=== PATIENT | male | born 1960 | race Caucasian/White ===

== ENCOUNTER 2018-04-19 17:33 | Inpatient (IN) ==
[2018-04-19] MEDS ORDERED: Morphine Inj 4 MG/ML Vial IV.PUSH ONE ×2 (17:59→20:11)
--- NOTE | 2018-04-19 18:05 | ED ---
HPI General Chief Complaint: Extremity Injury, Lower Stated Complaint: Fall Time Seen by Provider: 04/19/18 17:38 Source: patient and RN notes reviewed Mode of arrival: EMS Limitations: no limitations History of Present Illness HPI Narrative: 49-year-old male presents to the emergency department for evaluation of possible right knee dislocation. Patient states that his knee gave out and he fell. He is recently started having pain in his right knee. He denies any other injury. No head injury LOC. No neck pain or back pain. No chest pain or abdominal pain. No vomiting. He reports 4/10 right knee pain. This move pain is exacerbated with palpation and movement. Moderate severity. Patient is scheduled to have outpatient MRI tomorrow of his right knee. Patient reports renal cell carcinoma with metastases to the pancreas, adrenal glands, lung, liver. His oncologist is Dr. Caldwell. He is currently on oral chemotherapy. Patient's states that he recently had an x-ray of the knee due to pain and is still an area that could be a metastasis. He is scheduled for the MRI tomorrow for this. MD complaint: knee injury Onset (ago): minute(s) Injury: Right: knee Type of Injury: unknown Place: home Severity: moderate Severity scale (1-10): 4 Relieving factors: nothing Exacerbating factors: weight bearing and movement Context: fall Associated symptoms: snap/pop sensation Other symptoms: none Treatments prior to arrival: cold therapy and splint Related Data Home Medications Medication Instructions Recorded Confirmed allopurinol 300 mg PO DAILY 04/19/18 04/19/18 enalapril maleate [Vasotec] 10 mg PO DAILY 04/19/18 04/19/18 furosemide [Lasix] 40 mg PO DAILY 04/19/18 04/19/18 lisinopril 5 mg PO DAILY 04/19/18 04/19/18 lorazepam 0.5 mg PO BID 04/19/18 04/19/18 metoprolol tartrate 100 mg PO BID 04/19/18 04/19/18 omeprazole 20 mg PO DAILY 04/19/18 04/19/18 pazopanib [Votrient] 800 mg PO DAILY 04/19/18 04/19/18 potassium chloride 10 meq PO DAILY 04/19/18 04/19/18 prednisone 20 mg PO DAILY 04/19/18 04/19/18 Allergies Allergy/AdvReac Type Severity Reaction Status Date / Time No Known Allergies Allergy Verified 04/19/18 18:22 Review of Systems ROS: all other systems reviewed are negative PMFSH Medical History Medical History Gout (Acute) HBP (high blood pressure) (Acute) Hx of renal cell cancer (Acute) Surgical History Surgical History Hx of hernia repair (Acute) Hx of kidney removal (Acute) Social History Social History Substance History: No History of Abuse Second Hand Smoke Exposure: No Smoking Status: Never smoker Tobacco Type: Cigarettes How Often Do You Have a Drink Containing Alcohol: Never Recent Travel in [facility] within the Last 8 Weeks: No Recent Out of Country Travel within the Last 8 Weeks: No Exam Narrative Exam Narrative: GENERAL: Well-nourished, well-developed male patient, afebrile SKIN: Focused skin assessment warm/dry. HEAD: Normocephalic. Atraumatic EYES: No scleral icterus. No injection or drainage. NECK: Supple, trachea midline. No JVD or lymphadenopathy. CARDIOVASCULAR: Right pedal pulse is 2+ RESPIRATORY: No accessory muscle use. GASTROINTESTINAL: Abdomen soft, non-tender, nondistended. MUSCULOSKELETAL: No cyanosis, or edema. Patient has tenderness to extend right leg and over right knee. He has full sensation to the distal right lower extremity and can perform ROM of all digits of the right foot and right ankle. BACK: Nontender without obvious deformity. No CVA tenderness. Procedures Orthopedic Fracture Reduction Fracture #1: Time Out Performed: Yes Side: right Fracture Reduction Location: femur Analgesia: procedural sedation Technique: direct manipulation Post Reduction X-rays Demonstrate: acceptable reduction Post-Reduction Neuro Exam: intact Post-Reduction Vascular Exam: intact Splint Applied: Yes Patient Tolerated Procedure: well Procedural Sedation Indications: fracture/dislocation reduction ASA Class: ASA 2 Moderate Systemic Disease Preparation: engine monitor applied, pulse oximeter and supplemental O2 applied IV Propofol Dose (mgs): 50 Patient Tolerated Procedure: well Complications: none Course Initial Documented Vital Signs Temperature 97.8 F 04/19/18 17:57 Pulse Rate 86 04/19/18 17:57 Respiratory Rate 18 04/19/18 17:57 Blood Pressure 176/82 H 04/19/18 17:57 Pulse Oximetry 98 04/19/18 17:57 Last Documented Vital Signs Temperature 97.5 F L 04/20/18 16:00 Pulse Rate 56 L 04/20/18 16:00 Respiratory Rate 18 04/20/18 16:00 Blood Pressure 176/90 H 04/20/18 16:00 Pulse Oximetry 98 04/20/18 16:49 Medical Decision Making THEODORA Attestation THEODORA supervised visit: Yes Attestation: I, Dr. Tate, have reviewed the advance practice practitioner's documentation and am in agreement, met with the patient face to face, made the diagnosis, and the medical decision making was done by me. The patient was initially evaluated by Terra, the [employer]. Please see their complete history and physical. *My assessment and Findings: The patient presents with a history of right knee pain. The patient's x-ray revealed a fracture of the distal femur fracture that appears to be pathologic. The patient on examination is noted to have great distal dorsalis pedis and posterior tibial pulses with intact sensation over all digits and less than 3-second capillary refill. During the course of the patient's emergency department visit, the patient's history, examination, and differential diagnosis were reviewed with the patient. The patient was placed on a engine monitor with oximetry and frequent blood pressure monitoring. The patient had IV access obtained and blood work sent for analysis. The patient agreed to a closed reduction of his fracture dislocation with placement in a knee immobilizer. A timeout was done. Procedural sedation was supplied by me. The fracture was able to be easily reduced. The patient continued to be neurovascularly intact. The patient had an ice cuff applied. The patient was placed in a knee immobilizer. The patient will be admitted to the hospital for continued evaluation and treatment by the orthopedic physician and hospitalist service. MDM Narrative Medical decision making narrative: 57 year old male presents to the emergency department for evaluation of right knee pain after a fall that occurred just prior to arrival. X-ray of the right knee is ordered and pending. Patient is given Morphine 4 mg IV and Zofran 4 mg IV. X-ray of the right knee shows a distal femur fracture. Orthopedist on-call is paged. CBC, CMP, PTT, PT/INR, EKG, chest x-ray are ordered and pending. CBC shows no acute abnormality. Patient is elevated BUN of 32, creatinine 1.73. PTT is 25.4. PT is 11.0. INR is 1.1. Chest x-ray shows no acute cardiopulmonary disease. I spoke with Dr. Montoya who states that the knee needs to be straightened out. He recommends sedation and a long canvas knee splint. The patient is to be n.p.o. after midnight. I spoke to Dr. Morfin with [facility] who accepted admission. Dr. Tate performed sedation and canvas knee splint was applied with ice machine by [employer]. Medical Screen Exam Complete: Yes Emergency Medical Condition: Yes Differential Diagnosis Differential Diagnosis: dislocation vs. fracture vs. sprain vs. tendon injury Medical Records Medical records reviewed: Yes I reviewed the patient's medical records. Lab Data Result diagrams: 04/19/18 16:30 04/20/18 05:45 Lab Results 04/19/18 04/19/18 04/19/18 Range/Units 16:30 16:30 16:30 WBC 5.3 (4.0-11.0) th/mm3 RBC 3.63 L (4.50-5.90) mil/mm3 Hgb 13.8 (13.0-17.0) gm/dL Hct 38.9 L (39.0-51.0) % MCV 106.9 H (80.0-100.0) fL MCH 38.1 H (27.0-34.0) pg MCHC 35.6 (32.0-36.0) % RDW 14.9 (11.6-17.2) % Plt Count 110 L (150-450) th/mm3 MPV 7.8 (7.0-11.0) fL Neut % (Auto) 74.0 H (16.0-70.0) % Lymph % (Auto) 16.0 (9.0-44.0) % [place] % (Auto) 8.8 H (0.0-8.0) % Eos % (Auto) 0.8 (0.0-4.0) % Baso % (Auto) 0.4 (0.0-2.0) % Neut # (Auto) 3.9 (1.8-7.7) th/mm3 Lymph # (Auto) 0.9 L (1.0-4.8) th/mm3 [place] # (Auto) 0.5 (0.0-0.9) th/mm3 Eos # (Auto) 0.0 (0.0-0.4) th/mm3 Baso # (Auto) 0.0 (0.0-0.2) th/mm3 WBC Differential . Differential Comment Auto diff final PT 11.0 (9.8-11.6) sec INR 1.1 Ratio APTT 25.4 (24.3-30.1) sec Sodium 136 (136-145) meq/L Potassium 4.2 (3.5-5.1) meq/L Chloride 101 (98-107) meq/L Carbon Dioxide 22.2 (21.0-32.0) meq/L Anion Gap 13 (5-15) meq/L BUN 32 H (7-18) mg/dL Creatinine 1.73 H (0.60-1.30) mg/dL Estimated GFR 41 L (>89) mL/min Random Glucose 104 (74-106) mg/dL Calcium 8.7 (8.5-10.1) mg/dL Total Bilirubin 1.0 (0.2-1.0) mg/dL AST 57 H (15-37) U/L ALT 37 (12-78) U/L Alkaline Phosphatase 120 H (45-117) U/L Total Protein 7.5 (6.4-8.2) g/dL Albumin 3.9 (3.4-5.0) g/dL 04/20/18 Range/Units 05:45 WBC (4.0-11.0) th/mm3 RBC (4.50-5.90) mil/mm3 Hgb (13.0-17.0) gm/dL Hct (39.0-51.0) % MCV (80.0-100.0) fL MCH (27.0-34.0) pg MCHC (32.0-36.0) % RDW (11.6-17.2) % Plt Count (150-450) th/mm3 MPV (7.0-11.0) fL Neut % (Auto) (16.0-70.0) % Lymph % (Auto) (9.0-44.0) % [place] % (Auto) (0.0-8.0) % Eos % (Auto) (0.0-4.0) % Baso % (Auto) (0.0-2.0) % Neut # (Auto) (1.8-7.7) th/mm3 Lymph # (Auto) (1.0-4.8) th/mm3 [place] # (Auto) (0.0-0.9) th/mm3 Eos # (Auto) (0.0-0.4) th/mm3 Baso # (Auto) (0.0-0.2) th/mm3 WBC Differential Differential Comment PT (9.8-11.6) sec INR Ratio APTT (24.3-30.1) sec Sodium 139 (136-145) meq/L Potassium 4.2 (3.5-5.1) meq/L Chloride 103 (98-107) meq/L Carbon Dioxide 29.4 (21.0-32.0) meq/L Anion Gap 7 (5-15) meq/L BUN 30 H (7-18) mg/dL Creatinine 1.54 H (0.60-1.30) mg/dL Estimated GFR 47 L (>89) mL/min Random Glucose 88 (74-106) mg/dL Calcium 8.1 L (8.5-10.1) mg/dL Total Bilirubin (0.2-1.0) mg/dL AST (15-37) U/L ALT (12-78) U/L Alkaline Phosphatase (45-117) U/L Total Protein (6.4-8.2) g/dL Albumin (3.4-5.0) g/dL Imaging Data Radiologist's impression: Knee X-Ray 04/19/18 17:58 CONCLUSION: Distal femur fracture. Chest X-Ray 04/19/18 18:33 CONCLUSION: No acute cardiopulmonary disease. Lower Extremity Angiography 04/20/18 00:00 CONCLUSION: 1. The patient's pathologic fracture through the distal femurs easily visualized. There is no significant arterial neovascularity in or around the fracture site. Discharge Plan Discharge Disposition Patient Disposition: 30 Still Patient Discharge Details Diagnosis: Closed fracture of distal end of right femur Physicians Team ED Provider: Roly Lawrence ED Midlevel Provider: Terra Burton Primary Care Provider: Frankie Flanagan Attending Provider: Antonino Antonio Other Providers: Emeka Montoya ; Joel Ojeda ; Sandra Caldwell Status ED Status: Left Department Discharge Information Discharge Date/Time: 04/19/18 22:45
[2018-04-19 19:07] LABS: Baso % (Auto) 0.4 % (0.0-2.0); Eos % (Auto) 0.8 % (0.0-4.0); Hematocrit 38.9 % (39.0-51.0); Hemoglobin 13.8 gm/dL (13.0-17.0); Lymph # (Auto) 0.9 th/mm3 (1.0-4.8); Mean Corpuscular HGB Conc 35.6 % (32.0-36.0); Mean Corpuscular Hemoglobin 38.1 pg (27.0-34.0); Mean Corpuscular Volume 106.9 fL (80.0-100.0); Mean Platelet Volume 7.8 fL (7.0-11.0); Mono # (Auto) 0.5 th/mm3 (0.0-0.9); Mono % (Auto) 8.8 % (0.0-8.0); Neut # (Auto) 3.9 th/mm3 (1.8-7.7); Platelet Count 110 th/mm3 (150-450); Red Blood Count 3.63 mil/mm3 (4.50-5.90); Red Cell Distribution Width 14.9 % (11.6-17.2); White Blood Count 5.3 th/mm3 (4.0-11.0)
[2018-04-19 19:20] LABS: Activated Partial Thrombo Time 25.4 sec (24.3-30.1); INR 1.1 Ratio
[2018-04-19 19:31] LABS: Albumin 3.9 g/dL (3.4-5.0); Anion Gap 13 meq/L (5-15); Aspartate Aminotransferase 57 U/L (15-37); Blood Urea Nitrogen 32 mg/dL (7-18); Calcium 8.7 mg/dL (8.5-10.1); Carbon Dioxide 22.2 meq/L (21.0-32.0); Chloride 101 meq/L (98-107); Glomerular Filtration Rate 41 mL/min (>89); Glucose,Random 104 mg/dL (74-106); Potassium 4.2 meq/L (3.5-5.1); Sodium 136 meq/L (136-145)
[2018-04-19] MEDS ORDERED: Sod Chloride 0.9% Inj 1,000 ML IV.SIG ONE (19:35)
[2018-04-19 19:36] LABS: Alanine Aminotransferase 37 U/L (12-78); Alkaline Phosphatase 120 U/L (45-117); Total Protein 7.5 g/dL (6.4-8.2)
--- NOTE | 2018-04-19 21:50 | P.HP ---
History of Present Illness Service: [facility] Primary Care Physician: Frankie Flanagan MD, PhD Chief Complaint: left leg gave out History of Present Illness: 57-year-old white male presents to the emergency department at [facility] for evaluation of possible right knee dislocation. Patient states he was home was at home and his knee gave out and he fell to the ground. Patient has recently started having pain to the right leg and right knee and has been under workup x-rays were done which showed a question of possible metastasized to the knee and he was scheduled for an MRI which was to be done tomorrow. He denies any other injury no loss of consciousness no neck or back pain no chest pain no abdominal pain no vomiting no shortness of breath. Patient has a history of right of renal cell carcinoma with metastasis to the pancreas adrenal glands long liver has had renal nephrectomy is followed by oncology currently is on Pazopanib and core into the patient has has done well with this medication with improvement in his chest x-ray until recently and they found a possible spot on the knee. Patient also has a history of hypertension and is on metoprolol 100 twice daily enalapril 10 mg a day Lasix 40 mg a day and potassium supplementation patient's blood pressure has been a little high in the emergency room we will Klonopin as necessary as his kidney function shows a creatinine 1.73. Case was discussed with orthopedics by the emergency room and he will have conscious sedation in long Canvas splint placed on the leg plans for operation in a.m. - Diagnosis (1) Closed fracture of distal end of right femur (2) Metastatic renal cell carcinoma (3) Hypertension (4) Chronic renal insufficiency, stage III (moderate) Inpatient Certification: I certify that the inpatient services were ordered in accordance with Medicare regulations governing the order. This includes certification that hospital inpatient services are reasonable and necessary and in the case of services not specified as inpatient-only under 42 CFR 419.22(n), that they are appropriately provided as inpatient services in accordance to with the 2-midnight benchmark under 43 CFR 412.3(e) Estimated Total Length of Stay (Days): 3 Plans for Post Hospital Care: Not yet determined Review of Systems All other systems reviewed negative except as stated in HPI [facility]LY [facility], [facility] - History History Provided By: Patient - Medical History Medical History: Medical History (Last Updated 04/19/18 @ 18:31 by Mell Sr) Gout HBP (high blood pressure) Hx of renal cell cancer - Surgical History Surgical History: Surgical History (Last Updated 04/19/18 @ 18:31 by Mell Sr) Hx of hernia repair Hx of kidney removal - Tobacco History Second Hand Smoke Exposure: No Tobacco Use In Past 30 Days: No Smoking Status: Former smoker Tobacco Type: Cigarettes - Alcohol History How Often Do You Have a Drink Containing Alcohol: Never - Substance Use History Substance History: No History of Abuse - Travel History Recent Travel in the [place] Within the Last 8 Weeks: No Recent Travel Out of the Country Within the Last 8 Weeks: No - Immunization History Tetanus Immunization: >5 Years Hx Influenza Vaccine This Season: No Medications and Allergies Active Medications: Active Medications Allopurinol (Zyloprim) 300 mg PO DAILY QUANG Enalapril Maleate (Vasotec) 10 mg PO DAILY QUANG Furosemide (Lasix) 40 mg PO DAILY QUANG Hydromorphone HCl (Dilaudid Pf Inj) 1 mg IV.PUSH Q4H PRN PRN Reason: PAIN SCALE 6 TO 10 Sodium Chloride (1/2 Normal Saline Inj) 1,000 mls @ 50 mls/hr IV.CONT .Q20H QUANG Lorazepam (Ativan) 0.5 mg PO BID QUANG Metoprolol Tartrate (Lopressor) 100 mg PO BID QUANG Non-Formulary Medication (Pazopanib [Votrient]) 800 mg PO DAILY QUANG Pantoprazole Sodium (Protonix) 20 mg PO DAILY QUANG Potassium Chloride (Klor-Con 10) 10 meq PO DAILY QUANG Senna/Docusate Sodium (Lisa-Colace) 1 tab PO BID QUANG Allergies Allergy/AdvReac Type Severity Reaction Status Date / Time No Known Allergies Allergy Verified 04/19/18 18:22 Home Medications Medication Instructions Recorded Confirmed Type allopurinol 300 mg PO DAILY 04/19/18 04/19/18 History enalapril maleate [Vasotec] 10 mg PO DAILY 04/19/18 04/19/18 History furosemide [Lasix] 40 mg PO DAILY 04/19/18 04/19/18 History lisinopril 5 mg PO DAILY 04/19/18 04/19/18 History lorazepam 0.5 mg PO BID 04/19/18 04/19/18 History metoprolol tartrate 100 mg PO BID 04/19/18 04/19/18 History omeprazole 20 mg PO DAILY 04/19/18 04/19/18 History pazopanib [Votrient] 800 mg PO DAILY 04/19/18 04/19/18 History potassium chloride 10 meq PO DAILY 04/19/18 04/19/18 History prednisone 20 mg PO DAILY 04/19/18 04/19/18 History Exam Vital signs: Vital Signs 04/19/18 17:57 04/19/18 18:05 04/19/18 20:00 Temperature 97.8 F Pulse Rate 86 Respiratory Rate 18 17 Blood Pressure 176/82 H Pulse Oximetry 98 100 04/19/18 20:19 Temperature Pulse Rate Respiratory Rate Blood Pressure Pulse Oximetry 99 Intake & Output 04/19/18 04/19/18 04/20/18 06:59 18:59 06:59 Weight 90.718 kg Narrative: GENERAL: SKIN: Warm and dry. Palpable hernia on left side and ventral HEAD: Normocephalic. EYES: No scleral icterus. No injection or drainage. NECK: Supple, trachea midline. No JVD or lymphadenopathy. CARDIOVASCULAR: Regular rate and rhythm without murmurs, gallops, or rubs. RESPIRATORY: Breath sounds equal bilaterally. No accessory muscle use. GASTROINTESTINAL: Abdomen soft, non-tender, nondistended. MUSCULOSKELETAL: No cyanosis, or edema. rt leg in splint pain to rt leg BACK: Nontender without obvious deformity. No CVA tenderness. Results - Labs CBC & Chem 7: 04/19/18 16:30 04/19/18 16:30 Labs: Laboratory Results - last 24 hr 04/19/18 04/19/18 04/19/18 16:30 16:30 16:30 WBC 5.3 RBC 3.63 L Hgb 13.8 Hct 38.9 L MCV 106.9 H MCH 38.1 H MCHC 35.6 RDW 14.9 Plt Count 110 L MPV 7.8 Neut % (Auto) 74.0 H Lymph % (Auto) 16.0 [place] % (Auto) 8.8 H Eos % (Auto) 0.8 Baso % (Auto) 0.4 Neut # (Auto) 3.9 Lymph # (Auto) 0.9 L [place] # (Auto) 0.5 Eos # (Auto) 0.0 Baso # (Auto) 0.0 WBC Differential . Differential Comment Auto diff final PT 11.0 INR 1.1 APTT 25.4 Sodium 136 Potassium 4.2 Chloride 101 Carbon Dioxide 22.2 Anion Gap 13 BUN 32 H Creatinine 1.73 H Estimated GFR 41 L Random Glucose 104 Calcium 8.7 Total Bilirubin 1.0 AST 57 H ALT 37 Alkaline Phosphatase 120 H Total Protein 7.5 Albumin 3.9 - Imaging Impressions Knee X-Ray 04/19/18 17:58 CONCLUSION: Distal femur fracture. Chest X-Ray 04/19/18 18:33 CONCLUSION: No acute cardiopulmonary disease. Caprini VTE Risk Assessment Caprini VTE Risk Assessment: Moderate/High Risk (score >= 2) VTE Pharmacological Exception Reason: Documented Caprini Risk Assessment Model: Point Value = 1 Point Value = 2 Point Value = 3 Point Value = 5 Age 41-60 Minor surgery BMI > 25 kg/m2 Swollen legs Varicose veins or History of unexplained or recurrent spontaneous Oral contraceptives or hormone replacement Sepsis (< 1 month) Serious lung disease, including pneumonia (< 1 month) Abnormal pulmonary function Acute myocardial infarction Congestive heart failure (< 1 month) History of inflammatory bowel disease Medical patient at bed rest Age 61-74 Arthroscopic surgery Major open surgery (> 45 min) Laparoscopic surgery (> 45 min) Malignancy Confined to bed (> 72 hours) Immobilizing plaster cast Central venous access Age >= 75 History of VTE Family history of VTE Factor V Leiden Prothrombin [id number] Lupus anticoagulant Anticardiolipin antibodies Elevated serum homocysteine Heparin-induced thrombocytopenia Other congenital or acquired thrombophilia Stroke (< 1 month) Elective arthroplasty Hip, pelvis, or leg fracture Acute spinal cord injury (< 1 month) Prophylaxis Regimen: Total Risk Factor Score Risk Level Prophylaxis Regimen 0-1 Low Early ambulation 2 Moderate Order ONE of the following: *Sequential Compression Device (SCD) *Heparin 5000 units SQ BID 3-4 Higher Order ONE of the following medications: *Heparin 5000 units SQ TID *Enoxaparin/Lovenox 40 mg SQ daily (WT < 150 kg, CrCl > 30 mL/min) *Enoxaparin/Lovenox 30 mg SQ daily (WT < 150 kg, CrCl > 10-29 mL/min) *Enoxaparin/Lovenox 30 mg SQ BID (WT < 150 kg, CrCl > 30 mL/min) AND/OR *Sequential Compression Device (SCD) 5 or more Highest Order ONE of the following medications: *Heparin 5000 units SQ TID (Preferred with Epidurals) *Enoxaparin/Lovenox 40 mg SQ daily (WT < 150 kg, CrCl > 30 mL/min) *Enoxaparin/Lovenox 30 mg SQ daily (WT < 150 kg, CrCl > 10-29 mL/min) *Enoxaparin/Lovenox 30 mg SQ BID (WT < 150 kg, CrCl > 30 mL/min) AND *Sequential Compression Device (SCD) Assessment and Plan - Assessment (1) Closed fracture of distal end of right femur Code(s): S72.401A - Unspecified fracture of lower end of right femur, initial encounter for closed fracture Status: Acute Plan: for surgery in am ,hydromorph for pain was given morphine in er without any improvement (2) Metastatic renal cell carcinoma Code(s): C64.9 - Malignant neoplasm of unspecified kidney, except renal pelvis Status: Acute Plan: We will hold chemo therapy medication for tonight and will consult director of personnel (3) Hypertension Code(s): I10 - Essential (primary) hypertension Status: Acute Plan: Patient's blood pressure in the emergency room is high he did not take his evening doses of medication he had it with them we gave him his enalapril 10 mg p.o. as well as metoprolol 100 mg p.o. we will watch him before a little while longer and if there is no improvement we may need to give him labetalol 10 mg IV also placed clonidine as needed and his orders (4) Chronic renal insufficiency, stage III (moderate) Code(s): N18.3 - Chronic kidney disease, stage 3 (moderate) Status: Acute Plan: Patient has chronic kidney disease stage III his creatinine is currently 1.73 will follow-up once - Plan Further plan as case develops Code Status: Full Discussed Condition With: Patient and
[2018-04-19] MEDS ORDERED: Labetalol HCl Inj 100 MG/20 ML Vial IV.PUSH ONE (21:51)
[2018-04-19] MEDS: HYDROmorphone PF Inj 2 MG/ML Vial IV.PUSH PRN (22:43)
[2018-04-19] MEDS: Sodium Chloride 0.45 % Inj 1,000 ML IV.CONT SCH (22:58)
[2018-04-20] MEDS: HYDROmorphone PF Inj 2 MG/ML Vial IV.PUSH PRN ×5 (02:39→20:29)
--- NOTE | 2018-04-20 06:51 | P.PNOP ---
Subjective Interval history: Gregory is a 57-year-old male who is renal cell cancer. He has been having increasing pain to the right femur over the past several weeks. He has been ambulating with crutches. Imaging did show a tumor or mass over the distal femur prior to this fracture. Yesterday while he was at home his leg gave way and he was unable to stand or ambulate. Upon admission to the hospital x-rays confirmed fracture to the right distal femur. He has no other orthopedic complaints. He is currently on p.o. chemotherapy. Physical Exam Vital signs: Vital Signs 04/19/18 17:57 04/19/18 18:05 04/19/18 19:00 Temperature 97.8 F Pulse Rate 86 52 L Respiratory Rate 18 17 18 Blood Pressure 176/82 H 182/100 H Pulse Oximetry 98 98 04/19/18 20:00 04/19/18 20:19 04/19/18 21:00 Temperature Pulse Rate 52 L 56 L Respiratory Rate 18 18 Blood Pressure 212/116 H 213/126 H Pulse Oximetry 98 99 98 04/19/18 22:15 04/20/18 00:00 04/20/18 01:37 Temperature 97.4 F L Pulse Rate 56 L 54 L Respiratory Rate 18 16 Blood Pressure 179/79 H 196/110 H 164/96 H Pulse Oximetry 98 97 04/20/18 04:00 Temperature 97.4 F L Pulse Rate 62 Respiratory Rate 16 Blood Pressure 147/98 H Pulse Oximetry 98 Intake & Output 04/19/18 04/19/18 04/20/18 06:59 18:59 06:59 Intake Total 1000 / 1000 Output Total 850 / 850 Balance 150 / 150 Weight 90.718 kg 90.7 kg Intake: IV 1000 / 1000 NS Inj 1,000 ML @ Wide Open IV. 1000 / 1000 SIG BOLUS ONE Rx#:[id number] Output: Urine 850 / 850 Other: Date of Last Bowel Movement 04/19/18 Narrative: Bilateral upper extremities: Full range of motion neurovascularly intact Left lower extremity: Full range of motion and neurovascularly intact Right lower extremity: No pain to palpation of hip. Knee immobilizer in place with ice cuff. Distally intact sensation with good capillary refills with active dorsiflexion plantar flexion foot. Results - Labs CBC & Chem 7: 04/19/18 16:30 04/19/18 16:30 Laboratory Results - last 24 hr 04/19/18 04/19/18 04/19/18 16:30 16:30 16:30 WBC 5.3 RBC 3.63 L Hgb 13.8 Hct 38.9 L MCV 106.9 H MCH 38.1 H MCHC 35.6 RDW 14.9 Plt Count 110 L MPV 7.8 Neut % (Auto) 74.0 H Lymph % (Auto) 16.0 [place] % (Auto) 8.8 H Eos % (Auto) 0.8 Baso % (Auto) 0.4 Neut # (Auto) 3.9 Lymph # (Auto) 0.9 L [place] # (Auto) 0.5 Eos # (Auto) 0.0 Baso # (Auto) 0.0 WBC Differential . Differential Comment Auto diff final PT 11.0 INR 1.1 APTT 25.4 Sodium 136 Potassium 4.2 Chloride 101 Carbon Dioxide 22.2 Anion Gap 13 BUN 32 H Creatinine 1.73 H Estimated GFR 41 L Random Glucose 104 Calcium 8.7 Total Bilirubin 1.0 AST 57 H ALT 37 Alkaline Phosphatase 120 H Total Protein 7.5 Albumin 3.9 - Imaging Impressions Knee X-Ray 04/19/18 17:58 CONCLUSION: Distal femur fracture. Chest X-Ray 04/19/18 18:33 CONCLUSION: No acute cardiopulmonary disease. Assessment and Plan - Assessment and Plan Right distal femur fracture with history of renal cell carcinoma Order today for interventional radiology to evaluate and perform embolization of blood vessels surrounding the tumor of his right femur. Patient understands that embolization was not performed he will have significant bleeding if any procedures performed. We will plan on surgery tomorrow for open reduction internal internal fixation versus intramedullary oswaldo fixation of the right distal femur. N.p.o. after midnight from orthopedic standpoint
[2018-04-20 07:20] LABS: Calcium 8.1 mg/dL (8.5-10.1); Carbon Dioxide 29.4 meq/L (21.0-32.0); Potassium 4.2 meq/L (3.5-5.1)
[2018-04-20] MEDS ORDERED: VOTRIENT PO SCH (09:00)
[2018-04-20] MEDS ORDERED: Metoprolol Tartrate 100 MG Tablet PO SCH (09:00)
[2018-04-20] MEDS: Furosemide 40 MG Tablet PO SCH (09:00)
[2018-04-20] MEDS: Pantoprazole Sodium 20 MG DR Tablet PO SCH (09:00)
[2018-04-20] MEDS: LORazepam 0.5 MG Tablet PO SCH ×2 (09:01→20:28)
[2018-04-20] MEDS: Senna/Docusate Sodium 8.6/50 MG Tablet PO SCH ×2 (09:01→20:28)
[2018-04-20] MEDS: Allopurinol 300 MG Tablet PO SCH (09:01)
[2018-04-20] MEDS ORDERED: fentaNYL Citrate Inj 250 MCG/5 ML Ampul ONE (10:22)
--- NOTE | 2018-04-20 11:27 | P.RAD ---
Post Procedure Progress Note - Pre Procedure Diagnosis (1) Closed fracture of distal end of right femur (2) Metastatic renal cell carcinoma - Post Procedure Diagnosis (1) Closed fracture of distal end of right femur (2) Metastatic renal cell carcinoma - Procedure Information Procedure Date: 04/20/18 Supervising Radiologist: Duncan Graham MD Estimated blood loss (mL): 2 Anesthesia: Local, Conscious Sedation - Plan of Activity Patient to Unit: ROPU Patient Condition: Fair Additional Comments: Angio completed Lesion in the distal right femur is hypovascular. No embolization preformed See PACS Report for procedural detail/treatment.
--- NOTE | 2018-04-20 12:00 | P.PNIM ---
Subjective Interval history: Pt denies new complaints. Pain is controlled with current regimen. Physical Exam Vital signs: 04/20/18 04:00 Temperature 97.4 F L Pulse Rate 62 Respiratory Rate 16 Blood Pressure 147/98 H Pulse Oximetry 98 Narrative: GENERAL: This is a well-nourished, well-developed patient, in no apparent distress. CARDIOVASCULAR: Regular rate and rhythm without murmurs, gallops, or rubs. RESPIRATORY: Clear to auscultation. Breath sounds equal bilaterally. No wheezes , rales, or rhonchi. GASTROINTESTINAL: Abdomen soft, non-tender, nondistended. Normal active bowel sounds MUSCULOSKELETAL: Extremities without clubbing, cyanosis, or edema. NEURO: Alert & Oriented x4 to person, place, time, situation. Moves all ext x4 EXT: Right lower extremity: No pain to palpation of hip. Knee immobilizer in place with ice cuff. Distally intact sensation with good capillary refills with active dorsiflexion plantar flexion foot. Results - Labs CBC & Chem 7: 04/19/18 16:30 04/20/18 05:45 - Imaging Knee X-Ray 04/19/18 17:58 CONCLUSION: Distal femur fracture. Chest X-Ray 04/19/18 18:33 CONCLUSION: No acute cardiopulmonary disease. Assessment and Plan - Assessment (1) Closed fracture of distal end of right femur Code(s): S72.401A - Unspecified fracture of lower end of right femur, initial encounter for closed fracture Status: Acute Plan: - Assessment (1) Closed fracture of distal end of right femur Code(s): S72.401A - Unspecified fracture of lower end of right femur, initial encounter for closed fracture Status: Acute - Comgmt with Oncology & Orthopedics - Pt with apparent pathologic fracture - MRI RLE --> pending - IR, Dr. Graham, (04/20/18) - Angio completed - Lesion in the distal right femur is hypovascular. - No embolization preformed - Pt to under ORIF with Orthopedist, Dr. Amador (04/21) - Awaiting Oncology consultation - prn IV Dilaudid for pain control - SCD for DVT prophylaxis - supportive care (2) Metastatic renal cell carcinoma Code(s): C64.9 - Malignant neoplasm of unspecified kidney, except renal pelvis Status: Acute - chemotherapy on hold - await Oncology (3) Hypertension Code(s): I10 - Essential (primary) hypertension Status: Acute - metoprolol, enalapril - prn Catapres, vasotec (4) Chronic renal insufficiency, stage III (moderate) Code(s): N18.3 - Chronic kidney disease, stage 3 (moderate) Status: Acute Plan: - improving - observe (2) Metastatic renal cell carcinoma Code(s): C64.9 - Malignant neoplasm of unspecified kidney, except renal pelvis Status: Acute (3) Hypertension Code(s): I10 - Essential (primary) hypertension Status: Acute (4) Chronic renal insufficiency, stage III (moderate) Code(s): N18.3 - Chronic kidney disease, stage 3 (moderate) Status: Acute (1) Closed fracture of distal end of right femur Qualifiers: Encounter type: initial encounter Fracture morphology: other fracture Qualified Code(s): S72.491A - Other fracture of lower end of right femur, initial encounter for closed fracture
[2018-04-20] MEDS ORDERED: Pantoprazole Inj 40 MG Vial IV.PUSH ONE (13:20)
--- NOTE | 2018-04-20 13:45 | P.DIET ---
Nutritional Evaluation Type of nutrition evaluation: initial Nutrition screening: Weight Loss > 10 lbs Subjective Subjective Comments: On oral chemo Objective - Diagnosis R Distal Femur Fracture - Objective % IBW: 112 (URZ=843#) Body Weight Used for Calculations: Actual (90.7kg) Energy Needs - Lower Range (kCal/kg): 25 Energy Needs - Upper Range (kCal/kg): 30 Lower Limit kCal/kg (kCals): 2,268 Upper Limit kCal/kg (kCals): 2,721 Lower Limit Protein Factor (Grams per Kg): 1.1 Upper Limit Protein Factor (Grams per Kg): 1.4 Lower Protein Needs (Protein): 100 Upper Protein Needs (Protein): 127 Fluid Factor (ml/kg): 30 Estimated Fluid Needs (ml): 2,721 Dietitian Reviewed in Medical Record: Current diet, Curent medications, Intake & Output, Labs, Medical history Diet Order: NPO Objective Comments: Meds: Lasix Labs: BUN 30, correctional agency director 1.54, eGFR 47 LBM 04/19 Metastatic renal cell carcinoma s/p L nephrectomy, on oral chemo On 04/08, pt weighed 93.3kg at outpt Oncology f/u Assessment Assessment: Pt admitted for R distal femur fx. He has renal cell carcinoma w/ mets to the pancreas, adrenal glands, lung, and liver per review of EMR. He is on oral chemo , had a L nephrectomy. He is currently NPO for possible Ortho sx tomorrow. The pt is at high nutritional risk r/t his diagnosis of metastatic cancer. Previous weights have been reviewed. Will monitor diet advancement and clinical course. Dietitian following. Recommendations: 1. Continue current POC. 2. Advance diet per MD. 3. Will monitor diet advancement and clinical course. Dietitian to Monitor: Intake & Output, Weight change, Diet advancement, Medical course
--- NOTE | 2018-04-20 17:34 | ECG ---
Date Performed: 04/19/2018 Time Performed: 18:48:17 PTAGE: 57 years EKG: SINUS BRADYCARDIA Diffuse ST-T abnormalities are new since the previous tracing, Can not ex clude ischemia. ABNORMAL ECG PREVIOUS TRACING : 09/13/2008 [id number] DOCTOR: Steven Tate Interpretating Date/Time 04/20/2018 17:32:32
[2018-04-20] MEDS: Sodium Chloride 0.45 % Inj 1,000 ML IV.CONT SCH (19:51)
[2018-04-20] MEDS: Metoprolol Tartrate 50 MG Tablet PO SCH (20:28)
[2018-04-21] MEDS: HYDROmorphone PF Inj 2 MG/ML Vial IV.PUSH PRN ×4 (01:29→20:37)
[2018-04-21] MEDS ORDERED: Chlorhexidine Gluconate 2% 1 Pack (2 Cloths) TOPICAL ONE (04:02)
[2018-04-21] MEDS ORDERED: Metoprolol Tartrate 25 MG Tablet PO ONE (04:02)
[2018-04-21] MEDS ORDERED: Sodium Chlor 0.9% Inj 500 ML IV.SIG SCH (05:00)
--- NOTE | 2018-04-21 06:37 | P.PNOP ---
Subjective Interval history: s/p right distal femoral shaft fx s/p renal cell carcinoma right femur no changes. IR took for embolization yesterday but carcinoma was hypovascular Physical Exam Vital signs: Vital Signs 04/20/18 08:00 04/20/18 12:10 04/20/18 12:25 Temperature 97.3 F L Pulse Rate 51 L 57 L 46 L Respiratory Rate 18 20 20 Blood Pressure 159/95 H 139/90 143/85 H Pulse Oximetry 99 95 97 04/20/18 12:40 04/20/18 13:10 04/20/18 13:40 Temperature Pulse Rate 49 L 45 L Respiratory Rate 18 20 18 Blood Pressure 157/96 H 163/91 H 162/91 H Pulse Oximetry 97 97 94 L 04/20/18 14:27 04/20/18 16:00 04/20/18 16:49 Temperature 97.5 F L Pulse Rate 45 L 56 L Respiratory Rate 18 18 Blood Pressure 160/92 H 176/90 H Pulse Oximetry 95 98 98 04/20/18 20:00 04/21/18 00:00 04/21/18 04:00 Temperature 97.2 F L 97.2 F L 97.3 F L Pulse Rate 57 L 56 L 55 L Respiratory Rate 17 17 17 Blood Pressure 194/95 H 169/86 H 177/95 H Pulse Oximetry 100 99 100 Intake & Output 04/20/18 04/20/18 04/21/18 06:59 18:59 06:59 Intake Total 1000 / 1000 Output Total 850 / 850 600 / 600 Balance 150 / 150 -600 / -600 Weight 90.7 kg 86.7 kg Intake: IV 1000 / 1000 NS Inj 1,000 ML @ Wide Open IV. 1000 / 1000 SIG BOLUS ONE Rx#:[id number] Output: Urine 850 / 850 600 / 600 Other: # Voids 4 Date of Last Bowel Movement 04/19/18 04/20/18 # Bowel Movements 3 Narrative: RLE: +CKS. nvi. Results - Labs CBC & Chem 7: 04/19/18 16:30 04/20/18 05:45 Laboratory Results - last 24 hr 04/20/18 05:45 Sodium 139 Potassium 4.2 Chloride 103 Carbon Dioxide 29.4 Anion Gap 7 BUN 30 H Creatinine 1.54 H Estimated GFR 47 L Random Glucose 88 Calcium 8.1 L - Imaging Impressions Lower Extremity Angiography 04/20/18 00:00 CONCLUSION: 1. The patient's pathologic fracture through the distal femurs easily visualized. There is no significant arterial neovascularity in or around the fracture site. Assessment and Plan - Assessment and Plan 1) Right Distal Femoral Shaft Fx -npo -consents -surgery today with [facility] Prescription Drug Monitoring Database has been queried and verified prior to prescribing the controlled substance. Acute pain exception. This patient has normal, predicted, physiological, and time limited response to an adverse mechanical stimulus associated with surgery, trauma, or acute illness as described in my notes. There is a lack of alternative treatment options other than to include the prescribed narcotic treatment for this condition.
[2018-04-21] MEDS ORDERED: Bupivacaine/Epinephrine Inj 0.25% 50 ML Vial ONE (08:30)
[2018-04-21] MEDS ORDERED: Lidocaine PF 1% Inj 5 ML Syringe OTHER ONE (08:45)
[2018-04-21] MEDS ORDERED: Glycopyrrolate Inj 1 MG/5 ML Syringe IV.PUSH ONE (08:45)
[2018-04-21] MEDS ORDERED: Neostigmine Inj 5 MG/5 ML Syringe IV.PUSH ONE (08:45)
[2018-04-21] MEDS ORDERED: Post-op Orders (for Pharmacy) OTHER STA (10:00)
[2018-04-21] MEDS ORDERED: Morphine Inj 4 MG/ML Vial IV.PUSH PRN (10:00)
--- NOTE | 2018-04-21 10:05 | P.OP ---
- Preoperative Diagnosis (1) Closed fracture of distal end of right femur (2) Metastatic renal cell carcinoma Date of procedure: 04/21/18 Procedure: Right femur reduction and intramedullary nail fixation Anesthesia: GETA Surgeon: Joel Ojeda MD Associate Software Development Engineer: BIANCA Antony PA-C The surgical procedure was assisted by my physician clinical education assistant. My P.A. presence was necessary throughout this case for the manipulation and positioning of the surgical extremity. My P.A. was assisting me throughout the duration of this procedure. The skill set of a physician clinical education assistant was medically necessary to complete this procedure. During the surgical case the operating room surgical technologist was working at the back table and the physician clinical education assistant was directly assisting me. Operation and Findings: Implants used: [place] SCN 11 mm x 400 mm femoral nail Plan of activity: Toe-touch weightbearing Patient was seen and evaluated preoperatively. The patient has significant leg pain from femur shaft fracture. The risk and benefits of surgery were discussed in depth with the patient to include bleeding, infection, nonunion, malunion, need for hip replacement, painful hardware, as well as medical competitions including blood clots, stroke, heart attack, and . Informed consent was obtained. Operative site was marked. Patient was brought to the operating room and placed on Eleazar table. IV sedation was administered by anesthesiologist. Timeout procedure was performed. Hip and leg were prepped with alcohol followed by Hibiclens and draped in the usual sterile fashion. IV antibiotics were given prior to incision. Procedure began with reduction of fracture. Traction was applied. The leg was manipulated to achieve reduction. Excellent reduction was achieved. Fluoroscopy was used to confirm reduction. A two inch incision was made over the anterior knee. A medial arthrotomy was created. Guidepin was placed into the distal femur and advanced into the femoral canal. Fluoroscopy confirmed appropriate guidepin placement. A opening reamer was placed over the guidepin. A long ball tipped guide pin was now placed down the femoral canal into the center of the proximal femur. The nail length was now measured. Fluoroscopy confirmed appropriate guidepin placement. Flexible reamers were now passed over the guidepin to ream the intramedullary canal. Reamings from the canal for harvested and sent to pathology to evaluate for possible metastatic renal cell carcinoma. The nail was attached to the insertion handle. Nail was now placed over the guidepin into the femoral canal. Fluoroscopy confirmed appropriate nail placement. A small percutaneous incisions were made over the lateral thigh. Cannulas were placed through the insertion handle down to the femur. Using the insertion handle as a guide the 4 distal interlocking screw holes were predrilled and screw lengths were measured. Appropriate length screws was now placed. Next, using perfect [place] technique two proximal interlocking screws were placed. Screw holes were predrilled and screw lengths were measured. Final fluoroscopy revealed well aligned fracture with well-placed hardware. Incision was closed with 0 Vicryl, 3-0 Vicryl and shira. Sterile dressings were applied. Patient was awakened and transferred to recovery room.
--- NOTE | 2018-04-21 10:10 | P.CONOP ---
[facility] Orthopedics Consult Note - [facility] Consult date: 04/20/18 Chief complaint: right distal femur fracture Narrative: Gregory is a 57-year-old male. He presented to the emergency room after having severe right leg pain. He has a history of renal cell carcinoma. He has had increasing right pain above his knee for the past several weeks. He recently had x-rays which were suspicious for metastatic disease. He was scheduled to have an MRI to further evaluate. He states that he was standing when he felt a pop and had immediate pain. He denies any falls or traumatic injuries. He had severe right knee pain. Pain is worse with movement is improved with rest. He presented to the emergency room where x-rays reveal a displaced right distal femur supracondylar fracture. He is currently awake alert and orthopedic floor. His only complaint is right leg. He is currently undergoing chemotherapy for treatment of renal cell carcinoma. Review of Systems Patient denies fevers, chills, weight loss, headache, visual changes, hearing loss, chest pain, palpitations, shortness of breath, nausea, vomiting, no urinary changes, diarrhea, bowel changes, neck pain, back pain, skin rashes, weakness of extremities, easy bleeding, enlarged lymph nodes, numbness of extremities, anxiety, or depression. Patient's social history, past medical history, and family history were reviewed on chart and with patient. [facility] - History History Provided By: Patient - Medical History Medical History: Medical History (Last Reviewed 04/21/18 @ 10:07 by Joel Ojeda MD) Gout HBP (high blood pressure) Hx of renal cell cancer - Surgical History Surgical History: Surgical History (Last Reviewed 04/21/18 @ 10:07 by Joel Ojeda MD) Hx of hernia repair Hx of kidney removal - Social History I have reviewed the patient's Social History: Yes - Tobacco History Second Hand Smoke Exposure: No Tobacco Use In Past 30 Days: No Smoking Status: Never smoker Tobacco Type: Cigarettes - Alcohol History How Often Do You Have a Drink Containing Alcohol: Never - Substance Use History Substance History: No History of Abuse - Travel History Recent Travel in the [place] Within the Last 8 Weeks: No Recent Travel Out of the Country Within the Last 8 Weeks: No - Immunization History Tetanus Immunization: Unsure Hx Influenza Vaccine This Season: No Medications and Allergies Active Medications: Active Medications Hydrocodone Bitart/Acetaminophen (Brothers 5/325) 1 tab PO Q6H PRN PRN Reason: BREAKTHROUGH PAIN Last Admin: 04/21/18 04:25 Dose: 1 tab Hydrocodone Bitart/Acetaminophen (Brothers 7.5/325) 1 tab PO Q3H PRN PRN Reason: Pain Scale 3-10 Allopurinol (Zyloprim) 300 mg PO DAILY [facility] Last Admin: 04/20/18 09:01 Dose: 300 mg Calcium/Vitamin D (Oscal With D 250/125 Mg) 1 tab PO TID [facility] Clonidine HCl (Catapres) 0.1 mg PO Q6H PRN PRN Reason: SBP> OR = 180, DBP> OR = 100 Last Admin: 04/20/18 00:18 Dose: 0.1 mg Diphenhydramine HCl (Benadryl) 25 mg PO Q6H PRN PRN Reason: ITCHING Enalapril Maleate (Vasotec) 10 mg PO DAILY [facility] Last Admin: 04/20/18 09:00 Dose: 10 mg Enoxaparin Sodium (Lovenox Inj) 40 mg SQ DAILY [facility] Ergocalciferol (Vitamin D2) 50,000 unit PO ONCE ONE Stop: 04/21/18 10:01 Furosemide (Lasix) 40 mg PO DAILY [facility] Last Admin: 04/20/18 09:00 Dose: 40 mg Hydromorphone HCl (Dilaudid Pf Inj) 1 mg IV.PUSH Q4H PRN PRN Reason: PAIN SCALE 6 TO 10 Last Admin: 04/21/18 06:41 Dose: 1 mg Sodium Chloride (1/2 Normal Saline Inj) 1,000 mls @ 50 mls/hr IV.CONT .Q20H [facility] Last Admin: 04/20/18 19:51 Dose: Not Given Lactated Ringer's (Lr 1000 Ml Inj) 1,000 mls @ 30 mls/hr IV.SIG .Q24H [facility] Stop: 04/22/18 04:14 Last Admin: 04/21/18 07:56 Dose: 30 mls/hr Sodium Chloride (Ns Inj) 500 mls @ 30 mls/hr IV.SIG .Q10H [facility] Last Admin: 04/21/18 06:40 Dose: Not Given Cefazolin Sodium 1,000 mg/ (Sodium Chloride) 100 mls @ 200 mls/hr IV.SIG Q8H [facility] Stop: 04/22/18 02:29 Lorazepam (Ativan) 0.5 mg PO BID [facility] Last Admin: 04/20/18 20:28 Dose: 0.5 mg Metoprolol Tartrate (Lopressor) 50 mg PO BID [facility] Last Admin: 04/20/18 20:28 Dose: 50 mg Miscellaneous Information (Misc Post-Op Orders (For Pharmacy)) 0 each OTHER STAT STA Stop: 04/21/18 10:01 Morphine Sulfate (Morphine Inj) 3 mg IV.PUSH Q3H PRN PRN Reason: BREAKTHROUGH PAIN Ondansetron HCl (Zofran Inj) 4 mg IV.PUSH Q6H PRN PRN Reason: NAUSEA Pantoprazole Sodium (Protonix) 20 mg PO DAILY [facility] Last Admin: 04/20/18 09:00 Dose: 20 mg Potassium Chloride (Klor-Con 10) 10 meq PO DAILY [facility] Last Admin: 04/20/18 09:01 Dose: 10 meq Senna/Docusate Sodium (Lisa-Colace) 1 tab PO BID [facility] Last Admin: 04/20/18 20:28 Dose: Not Given Sodium Chloride (Ns Flush) 2 ml IV.FLUSH BID [facility] Sodium Chloride (Ns Flush) 2 ml IV.FLUSH PRN PRN PRN Reason: FLUSH AFTER USING IV ACCESS Vitamin D (Vitamin D3) 5,000 unit PO DAILY [facility] Allergies Allergy/AdvReac Type Severity Reaction Status Date / Time No Known Allergies Allergy Verified 04/19/18 18:22 Home Medications Medication Instructions Recorded Confirmed Type allopurinol 300 mg PO DAILY 04/19/18 04/19/18 History enalapril maleate [Vasotec] 10 mg PO DAILY 04/19/18 04/19/18 History furosemide [Lasix] 40 mg PO DAILY 04/19/18 04/19/18 History lisinopril 5 mg PO DAILY 04/19/18 04/19/18 History lorazepam 0.5 mg PO BID 04/19/18 04/19/18 History metoprolol tartrate 100 mg PO BID 04/19/18 04/19/18 History omeprazole 20 mg PO DAILY 04/19/18 04/19/18 History pazopanib [Votrient] 800 mg PO DAILY 04/19/18 04/19/18 History potassium chloride 10 meq PO DAILY 04/19/18 04/19/18 History prednisone 20 mg PO DAILY 04/19/18 04/19/18 History Exam Vital signs: Vital Signs 04/20/18 12:10 04/20/18 12:25 04/20/18 12:40 Temperature Pulse Rate 57 L 46 L Respiratory Rate 20 20 18 Blood Pressure 139/90 143/85 H 157/96 H Pulse Oximetry 95 97 97 04/20/18 13:10 04/20/18 13:40 04/20/18 14:27 Temperature Pulse Rate 49 L 45 L 45 L Respiratory Rate 20 18 18 Blood Pressure 163/91 H 162/91 H 160/92 H Pulse Oximetry 97 94 L 95 04/20/18 16:00 04/20/18 16:49 04/20/18 20:00 Temperature 97.5 F L 97.2 F L Pulse Rate 56 L 57 L Respiratory Rate 18 17 Blood Pressure 176/90 H 194/95 H Pulse Oximetry 98 98 100 04/21/18 00:00 04/21/18 04:00 Temperature 97.2 F L 97.3 F L Pulse Rate 56 L 55 L Respiratory Rate 17 17 Blood Pressure 169/86 H 177/95 H Pulse Oximetry 99 100 Intake & Output 04/20/18 04/21/18 04/21/18 18:59 06:59 18:59 Output Total 600 / 600 Balance -600 / -600 Weight 86.7 kg Output: Urine 600 / 600 Other: # Voids 4 Date of Last Bowel Movement 04/20/18 # Bowel Movements 3 Narrative: Gregory is a pleasant 57-year-old male. General: Awake and alert. No acute distress. Appears well-developed well- nourished Head: Normocephalic, atraumatic pupils are equal Neck: Soft, nontender, trachea midline Abdomen: Soft, nondistended Examination of right arm reveals no pain or deformity with shoulder, elbow, or wrist motion. Skin is intact. Radial pulse is palpable. Normal capillary refill in fingers. Sensation is intact in radial, ulnar, and median nerve distributions. [employer] Intern[employer] strength is +5. No lymphadenopathy noted. Examination of left arm reveals no pain or deformity with shoulder, elbow, or wrist motion. Skin is intact. Radial pulse is palpable. Normal capillary refill in fingers. Sensation is intact in radial, ulnar, and median nerve distributions. [employer] strength is +5. No lymphadenopathy noted. Examination of left lower extremity reveals no pain or deformity with hip, knee , or ankle motion. Skin is intact. Sensation is intact in left foot. Dorsalis pedis pulse is palpable. Normal capillary refill and feet. Thigh and calf compartments are soft. No lymphadenopathy noted. +5 strength of ankle dorsiflexion and plantarflexion. Examination of right lower extremity reveals no tenderness around his hip or ankle motion. He is very tender to palpation over the distal femur and knee. He has pain with any knee motion. There is mild swelling of the thigh. skin is intact. Sensation is intact in right foot. Dorsalis pedis pulse is palpable. Normal capillary refill and feet. Thigh and calf compartments are soft. No lymphadenopathy noted. +5 strength of ankle dorsiflexion and plantarflexion. Results - Labs Result Diagrams: 04/19/18 16:30 04/20/18 05:45 - Diagnostic results Imaging: Impressions Lower Extremity Angiography 04/20/18 00:00 CONCLUSION: 1. The patient's pathologic fracture through the distal femurs easily visualized. There is no significant arterial neovascularity in or around the fracture site. Knee x-ray: report reviewed, image reviewed Assessment and Plan - Assessment and Plan Gregory has a history of renal cell carcinoma. He now has a fracture of the right distal femur. He had no significant traumatic injury but has been having increasing pain over the past several weeks. This is likely pathologic fracture. Interventional radiology will be consulted for possible embolization of this region. Metastatic renal cell carcinoma can be very vascular and cause significant bleeding with surgery. I will then plan on surgery for right femur reduction and intramedullary nail fixation versus possible open reduction internal fixation with the plate. There risk and benefits of surgery were discussed in depth with patient. The risk and benefits of surgery were discussed in depth with patient. The risk of surgery include bleeding, infection, injuries to arteries, nerves, or blood vessels, infection, wound complications, nonunion, malunion, painful hardware, and need for further surgery. I also discussed medical complications including blood clots, pneumonia, stroke, heart attack, and . Informed consent was obtained and all questions were answered. N.p.o. Consent signed on chart SCDs and NILDA quiroz. Will start Lovenox postoperatively Calcium and vitamin D supplementation Physical therapy consult A mid-level provider in my office (nurse practitioner or physician insurance administrative assistant) may see this patient on follow-up visits and continue to implement the objectives of this plan including: Starting or adjusting medications, injections , cast application, orthotics, brace application, physical therapy, radiological studies (including x-ray, MRI, CT, ultrasound, bone scan), vascular studies, neurologic studies, specialist consultation, and proceeding with surgical management, as appropriate. [facility] Prescription Drug Monitoring Database has been queried and verified prior to prescribing the controlled substance. Acute pain exception. This patient has normal, predicted, physiological, and time limited response to an adverse mechanical stimulus associated with surgery, trauma, or acute illness as described in my notes. There is a lack of alternative treatment options other than to include the prescribed narcotic treatment for this condition.
[2018-04-21] MEDS ORDERED: fentaNYL Citrate Inj 100 MCG/2 ML Ampul ONE (10:43)
[2018-04-21] MEDS ORDERED: *morphine SULFATE 4 MG/ML PERIprocedure ONLY ONE (10:56)
[2018-04-21] MEDS ORDERED: diphenhydrAMINE HCl 50 MG/ML VIAL IV.PUSH ONE (11:11)
[2018-04-21] MEDS: Allopurinol 300 MG Tablet PO SCH (12:12)
[2018-04-21] MEDS: Calcium/Vitamin D 250/125 MG Tablet PO SCH ×2 (12:13→17:00)
[2018-04-21] MEDS: Pantoprazole Sodium 20 MG DR Tablet PO SCH (12:13)
[2018-04-21] MEDS: Furosemide 40 MG Tablet PO SCH (12:13)
[2018-04-21] MEDS: Metoprolol Tartrate 50 MG Tablet PO SCH ×2 (12:13→20:37)
[2018-04-21] MEDS: Senna/Docusate Sodium 8.6/50 MG Tablet PO SCH ×2 (12:14→20:37)
[2018-04-21] MEDS: LORazepam 0.5 MG Tablet PO SCH ×2 (12:18→20:40)
--- NOTE | 2018-04-21 14:41 | P.PNIM ---
Subjective Interval history: No new complaints. Physical Exam Vital signs: 04/21/18 12:00 Temperature 97.4 F L Pulse Rate 55 L Respiratory Rate 18 Blood Pressure 171/90 H Pulse Oximetry 92 L Narrative: GENERAL: This is a well-nourished, well-developed patient, in no apparent distress. CARDIOVASCULAR: Regular rate and rhythm without murmurs, gallops, or rubs. RESPIRATORY: Clear to auscultation. Breath sounds equal bilaterally. No wheezes , rales, or rhonchi. GASTROINTESTINAL: Abdomen soft, non-tender, nondistended. Normal active bowel sounds MUSCULOSKELETAL: Extremities without clubbing, cyanosis, or edema. NEURO: Alert & Oriented x4 to person, place, time, situation. Moves all ext x4 EXT: no c/c/e Results - Labs CBC & Chem 7: 04/19/18 16:30 04/20/18 05:45 - Imaging Knee X-Ray 04/19/18 17:58 CONCLUSION: Distal femur fracture. Chest X-Ray 04/19/18 18:33 CONCLUSION: No acute cardiopulmonary disease. Lower Extremity Angiography 04/20/18 00:00 CONCLUSION: 1. The patient's pathologic fracture through the distal femurs easily visualized. There is no significant arterial neovascularity in or around the fracture site. Femur X-Ray 04/21/18 00:00 CONCLUSION: Anatomic alignment. Assessment and Plan - Assessment (1) Closed fracture of distal end of right femur Code(s): S72.401A - Unspecified fracture of lower end of right femur, initial encounter for closed fracture Status: Acute Plan: - Assessment (1) Closed fracture of distal end of right femur Code(s): S72.401A - Unspecified fracture of lower end of right femur, initial encounter for closed fracture Status: Acute - Comgmt with Oncology & Orthopedics - Pt with apparent pathologic fracture - MRI RLE --> pending - IR, Dr. Graham, (04/20/18) - Angio completed - Lesion in the distal right femur is hypovascular. - No embolization preformed - Pt underwent Right femur reduction and intramedullary nail fixation (04/21/18) with Dr. Joel Amador - Case d/w Dr. Amador (04/21/18) - Appreciate input from Oncology, Dr. Caldwell - [facility] for DVT prophylaxis - norco/IV dilaudid prn pain - supportive care - anticipate d/c in 2 -3 days (2) Metastatic renal cell carcinoma Code(s): C64.9 - Malignant neoplasm of unspecified kidney, except renal pelvis Status: Acute - chemotherapy on hold - await Oncology (3) Hypertension Code(s): I10 - Essential (primary) hypertension Status: Acute - metoprolol, enalapril - prn Catapres, vasotec (4) Chronic renal insufficiency, stage III (moderate) Code(s): N18.3 - Chronic kidney disease, stage 3 (moderate) Status: Acute Plan: - improving - observe (2) Metastatic renal cell carcinoma Code(s): C64.9 - Malignant neoplasm of unspecified kidney, except renal pelvis Status: Acute (3) Hypertension Code(s): I10 - Essential (primary) hypertension Status: Acute (4) Chronic renal insufficiency, stage III (moderate) Code(s): N18.3 - Chronic kidney disease, stage 3 (moderate) Status: Acute (1) Closed fracture of distal end of right femur Qualifiers: Encounter type: initial encounter Fracture morphology: other fracture Qualified Code(s): S72.491A - Other fracture of lower end of right femur, initial encounter for closed fracture
[2018-04-21] MEDS: Sodium Chloride 0.45 % Inj 1,000 ML IV.CONT SCH (15:30)
--- NOTE | 2018-04-21 17:07 | P.PNONC ---
Subjective Interval history: Patient lying in bed, in no acute distress. He is status post right femur reduction and intramedullary nail fixation today. He reports he had some bleeding at the surgical site and this was reinforced with Micheal wrap. Ice packs to the area. Objective Vital Signs/Intake & Output: Vital Signs 04/20/18 20:00 04/21/18 00:00 04/21/18 04:00 Temperature 97.2 F L 97.2 F L 97.3 F L Pulse Rate 57 L 56 L 55 L Respiratory Rate 17 17 17 Blood Pressure 194/95 H 169/86 H 177/95 H Pulse Oximetry 100 99 100 04/21/18 10:30 04/21/18 10:45 04/21/18 11:00 Temperature 97.9 F Pulse Rate 77 66 59 L Respiratory Rate 14 16 12 Blood Pressure 139/93 H 126/60 130/84 Pulse Oximetry 100 100 98 04/21/18 11:35 04/21/18 12:00 04/21/18 16:00 Temperature 97.4 F L 98.6 F Pulse Rate 55 L 61 Respiratory Rate 18 18 Blood Pressure 171/90 H 165/89 H Pulse Oximetry 97 92 L 98 Intake & Output 04/20/18 04/21/18 04/21/18 18:59 06:59 18:59 Intake Total 1000 / 1000 900 / 900 Output Total 600 / 600 50 / 50 Balance 1000 / 1000 -600 / -600 850 / 850 Weight 86.7 kg Intake: IV 1000 / 1000 100 / 100 1/2 Normal Saline Inj 1,000 ML 1000 / 1000 @ 50 mls/hr IV.CONT .Q20H [facility] Rx#:[id number] Ancef Inj 1,000 MG In NS Inj 100 / 100 100 ML @ 200 mls/hr IV.SIG Q8H [facility] Rx#:[id number] Anesthesia Amount 800 / 800 Output: Urine 600 / 600 Estimated Blood Loss 50 / 50 Other: # Voids 4 Date of Last Bowel Movement 04/20/18 # Bowel Movements 3 Result Diagrams: 04/19/18 16:30 04/20/18 05:45 Imaging Studies: Impressions Femur X-Ray 04/21/18 00:00 CONCLUSION: Anatomic alignment. Medications: Active Medications Generic Name Dose Route Start Last Admin Trade Name Freq PRN Reason Stop Dose Admin Hydrocodone Bitart/Acetaminophen 1 tab 04/20/18 20:07 04/21/18 04:25 [place] 5/325 PO 1 tab Q6H PRN Administration BREAKTHROUGH PAIN Hydrocodone Bitart/Acetaminophen 1 tab 04/21/18 10:00 04/21/18 14:27 [place] 7.5/325 PO 1 tab Q3H PRN Administration Pain Scale 3-10 Allopurinol 300 mg 04/20/18 09:00 04/21/18 12:12 Zyloprim PO 300 mg DAILY [facility] Administration Calcium/Vitamin D 1 tab 04/21/18 13:00 04/21/18 12:13 Oscal With D 250/125 Mg PO 1 tab TID QUANG Administration Clonidine HCl 0.1 mg 04/19/18 21:32 04/20/18 00:18 Catapres PO 0.1 mg Q6H PRN Administration SBP> OR = 180, DBP> OR = 100 Enalapril Maleate 10 mg 04/20/18 09:00 04/21/18 12:12 Vasotec PO 10 mg DAILY [facility] Administration Furosemide 40 mg 04/20/18 09:00 04/21/18 12:13 Lasix PO 40 mg DAILY [facility]ANG Administration Hydromorphone HCl 1 mg 04/19/18 21:26 04/21/18 06:41 Dilaudid Pf Inj IV.PUSH 1 mg Q4H PRN Administration PAIN SCALE 6 TO 10 Sodium Chloride 1,000 mls @ 50 mls/hr 04/19/18 21:30 04/21/18 15:30 1/2 Normal Saline Inj IV.CONT 50 mls/hr .Q20H [facility] Administration Lactated Ringer's 1,000 mls @ 30 mls/hr 04/21/18 04:15 04/21/18 07:56 Lr 1000 Ml Inj IV.SIG 04/22/18 04:14 30 mls/hr .Q24H [facility] Administration Sodium Chloride 500 mls @ 30 mls/hr 04/21/18 05:00 04/21/18 06:40 Ns Inj IV.SIG Not Given .Q10H [facility] Cefazolin Sodium 1,000 mg/ 100 mls @ 200 mls/hr 04/21/18 16:00 04/21/18 16:52 Sodium Chloride IV.SIG 04/22/18 08:29 Infused Q8H [facility] Infusion Lorazepam 0.5 mg 04/20/18 09:00 04/21/18 12:18 Ativan PO Not Given BID QUANG Metoprolol Tartrate 50 mg 04/20/18 21:00 04/21/18 12:13 Lopressor PO 50 mg BID QUANG Administration Pantoprazole Sodium 20 mg 04/20/18 09:00 04/21/18 12:13 Protonix PO 20 mg DAILY [facility] Administration Potassium Chloride 10 meq 04/20/18 09:00 04/21/18 12:13 Klor-Con 10 PO 10 meq DAILY [facility] Administration Senna/Docusate Sodium 1 tab 04/20/18 09:00 04/21/18 12:14 Lisa-Colace PO 1 tab BID QUANG Administration Objective Remarks: GENERAL: Well-nourished, well-developed male patient, lying in bed, in no acute distress. SKIN: Warm and dry. HEAD: Normocephalic. EYES: No scleral icterus. No injection or drainage. NECK: Supple, trachea midline. CARDIOVASCULAR: Regular rate and rhythm without murmurs. RESPIRATORY: Anterior breath sounds equal bilaterally. No accessory muscle use. GASTROINTESTINAL: Abdomen soft, non-tender, nondistended. EXTREMITIES: No cyanosis, or edema. Micheal wraps to right knee. Bilateral SCDs in place. MUSCULOSKELETAL: Adequate muscle tone. NEUROLOGICAL: No obvious focal deficit. Awake, alert, and oriented x3. PSYCHIATRIC: Appropriate mood and affect; insight and judgment normal. Assessment/Plan - Plan Mr. Salguero is a 57-year-old gentleman who has a history of metastatic renal cell cancer, originally diagnosed in 2009 and develop metastatic disease in 2013. He is receiving Votrient for palliative therapy. Patient was admitted with a new pathologic fracture of the right distal femur. Plan: 1. Metastatic renal cell cancer. We will hold Votrient until patient recovers from orthopedic surgery. This medication could hinder his ability to help. 2. Fracture of right distal femur. Patient is status post right femur reduction and intramedullary nail fixation today with Dr. Amador. Surgical dressing reinforced with Micheal wrap, ice packs in place. No obvious bleeding noted. 3. We recommend DVT prophylaxis as the patient is at a high risk for this, given his renal cell cancer. Once cleared by orthopedic surgeon patient should be placed on prophylactic therapy. Continue mechanical prophylaxis with SCDs at this time. 4. Continue supportive care.
[2018-04-22] MEDS: HYDROmorphone PF Inj 2 MG/ML Vial IV.PUSH PRN ×3 (00:24→19:56)
--- NOTE | 2018-04-22 06:41 | P.PNOP ---
Subjective Interval history: Resting comfortably with no new complaints. States that the pain in the femur has improved significantly. He has been able to get to the bathroom on a walker with assistance. Physical Exam Vital signs: Vital Signs 04/21/18 10:30 04/21/18 10:45 04/21/18 11:00 Temperature 97.9 F Pulse Rate 77 66 59 L Respiratory Rate 14 16 12 Blood Pressure 139/93 H 126/60 130/84 Pulse Oximetry 100 100 98 04/21/18 11:35 04/21/18 12:00 04/21/18 16:00 Temperature 97.4 F L 98.6 F Pulse Rate 55 L 61 Respiratory Rate 18 18 Blood Pressure 171/90 H 165/89 H Pulse Oximetry 97 92 L 98 04/21/18 20:00 04/22/18 00:00 04/22/18 03:41 Temperature 97.9 F 97.7 F 97.9 F Pulse Rate 75 68 62 Respiratory Rate 19 17 16 Blood Pressure 161/79 H 130/80 142/85 H Pulse Oximetry 95 98 98 Intake & Output 04/21/18 04/21/18 04/22/18 06:59 18:59 06:59 Intake Total 1520 / 1520 340 / 340 Output Total 600 / 600 900 / 900 1200 / 1200 Balance -600 / -600 620 / 620 -860 / -860 Weight 86.7 kg 86.7 kg Intake: IV 100 / 100 100 / 100 Ancef Inj 1,000 MG In NS Inj 100 / 100 100 / 100 100 ML @ 200 mls/hr IV.SIG Q8H [facility] Rx#:[id number] Oral 620 / 620 240 / 240 Anesthesia Amount 800 / 800 Output: Urine 600 / 600 850 / 850 1200 / 1200 Estimated Blood Loss 50 / 50 Other: # Voids 4 2 1 Date of Last Bowel Movement 04/20/18 04/20/18 # Bowel Movements 3 0 1 Narrative: Right lower extremity: Clean dry dressings intact. Knee immobilizer in place. Intact sensation distally with active dorsiflexion and plantar flexion foot. Good capillary refills and no calf tenderness Results - Labs CBC & Chem 7: 04/19/18 16:30 04/20/18 05:45 - Imaging Impressions Femur X-Ray 04/21/18 00:00 CONCLUSION: Anatomic alignment. Assessment and Plan - Assessment and Plan Pathologic fracture of right distal femur status post intramedullary nail fixation POD 1 Physical therapy toe-touch weightbearing right lower extremity and passive range of motion of knee Daily dressing changes beginning POD 2 [facility] Oncology to continue to follow for renal cell carcinoma Reamings from femur were sent to pathology Prescription from Dr. Amador is on the chart. Previously pain management has been controlled with his primary care physician and also his oncologist. [employer] Prescription Drug Monitoring Database has been queried and verified prior to prescribing the controlled substance. Acute pain exception. This patient has normal, predicted, physiological, and time limited response to an adverse mechanical stimulus associated with surgery, trauma, or acute illness as described in my notes. There is a lack of alternative treatment options other than to include the prescribed narcotic treatment for this condition.
[2018-04-22] MEDS: Pantoprazole Sodium 20 MG DR Tablet PO SCH (09:15)
[2018-04-22] MEDS: Calcium/Vitamin D 250/125 MG Tablet PO SCH ×3 (09:15→18:03)
[2018-04-22] MEDS: Furosemide 40 MG Tablet PO SCH (09:15)
[2018-04-22] MEDS: Allopurinol 300 MG Tablet PO SCH (09:15)
[2018-04-22] MEDS: Metoprolol Tartrate 50 MG Tablet PO SCH ×2 (09:16→20:02)
[2018-04-22] MEDS: Senna/Docusate Sodium 8.6/50 MG Tablet PO SCH ×2 (09:16→20:03)
[2018-04-22] MEDS: LORazepam 0.5 MG Tablet PO SCH ×2 (09:26→20:03)
[2018-04-22] MEDS: Enoxaparin Inj 40 MG/0.4 ML Syringe SQ SCH (09:26)
[2018-04-22 11:31] LABS: Baso % (Auto) 0.3 % (0.0-2.0); Eos % (Auto) 0.4 % (0.0-4.0); Hematocrit 30.1 % (39.0-51.0); Hemoglobin 10.3 gm/dL (13.0-17.0); Lymph # (Auto) 0.5 th/mm3 (1.0-4.8); Lymph % (Auto) 10.1 % (9.0-44.0); Mean Corpuscular HGB Conc 34.1 % (32.0-36.0); Mean Corpuscular Hemoglobin 37.5 pg (27.0-34.0); Mean Platelet Volume 8.3 fL (7.0-11.0); Mono # (Auto) 0.7 th/mm3 (0.0-0.9); Mono % (Auto) 12.8 % (0.0-8.0); Neut % (Auto) 76.4 % (16.0-70.0); Platelet Count 94 th/mm3 (150-450); Red Blood Count 2.74 mil/mm3 (4.50-5.90); White Blood Count 5.2 th/mm3 (4.0-11.0)
[2018-04-22 12:05] LABS: Calcium 8.2 mg/dL (8.5-10.1); Carbon Dioxide 25.1 meq/L (21.0-32.0); Potassium 4.2 meq/L (3.5-5.1)
--- NOTE | 2018-04-22 12:19 | P.PNIM ---
Subjective Interval history: Follow up: Closed fracture of distal end of right femur, Metastatic renal cell carcinoma, Hypertension and Chronic renal insufficiency, stage III Patient is S/P Right femur reduction and intramedullary nail fixation 04/21/[address] Amador no further oozing from surgical site TTWB RLE ambulated 15 feet with PT Patient resting comfortably when Dr. Antonio and I entered the room, awoke easily to voice - offers no complaints at this time Physical Exam Vital signs: Vital Signs 04/21/18 16:00 04/21/18 20:00 04/22/18 00:00 Temperature 98.6 F 97.9 F 97.7 F Pulse Rate 61 75 68 Respiratory Rate 18 19 17 Blood Pressure 165/89 H 161/79 H 130/80 Pulse Oximetry 98 95 98 04/22/18 03:41 04/22/18 08:00 Temperature 97.9 F 97.7 F Pulse Rate 62 69 Respiratory Rate 16 18 Blood Pressure 142/85 H 143/83 H Pulse Oximetry 98 95 Intake & Output 04/21/18 04/22/18 04/22/18 18:59 06:59 18:59 Intake Total 1520 / 1520 340 / 340 Output Total 900 / 900 1200 / 1200 Balance 620 / 620 -860 / -860 Weight 86.7 kg Intake: IV 100 / 100 100 / 100 Ancef Inj 1,000 MG In NS Inj 100 / 100 100 / 100 100 ML @ 200 mls/hr IV.SIG Q8H [facility] Rx#:[id number] Oral 620 / 620 240 / 240 Anesthesia Amount 800 / 800 Output: Urine 850 / 850 1200 / 1200 Estimated Blood Loss 50 / 50 Other: # Voids 2 1 Date of Last Bowel Movement 04/20/18 04/22/18 # Bowel Movements 0 1 Narrative: GENERAL: This is a well-nourished, well-developed patient, in no apparent distress. CARDIOVASCULAR: Regular rate and rhythm RESPIRATORY: Clear to auscultation. Breath sounds equal bilaterally. GASTROINTESTINAL: Abdomen soft, non-tender, nondistended. Normal active bowel sounds MUSCULOSKELETAL: Extremities without clubbing, cyanosis, or edema. Pot op dressing RLE dry and intact NEURO: able to awaken to voice, oriented. Results - Labs CBC & Chem 7: 04/22/18 10:56 04/22/18 10:56 Laboratory Results - last 24 hr 04/22/18 04/22/18 10:56 10:56 WBC 5.2 RBC 2.74 L Hgb 10.3 L Hct 30.1 L MCV 110.0 H MCH 37.5 H MCHC 34.1 RDW 15.0 Plt Count 94 L MPV 8.3 Prelim Diff (Auto) Slide review pending Neut % (Auto) 76.4 H Lymph % (Auto) 10.1 [place] % (Auto) 12.8 H Eos % (Auto) 0.4 Baso % (Auto) 0.3 Neut # (Auto) 4.0 Lymph # (Auto) 0.5 L [place] # (Auto) 0.7 Eos # (Auto) 0.0 Baso # (Auto) 0.0 Differential Comment . Sodium 134 L Potassium 4.2 Chloride 98 Carbon Dioxide 25.1 Anion Gap 11 BUN 26 H Creatinine 1.44 H Estimated GFR 50 L Random Glucose 133 H Calcium 8.2 L - Imaging Impressions Femur X-Ray 04/21/18 00:00 CONCLUSION: Anatomic alignment. Assessment and Plan - Assessment (1) Closed fracture of distal end of right femur Code(s): S72.401A - Unspecified fracture of lower end of right femur, initial encounter for closed fracture Status: Acute Plan: (1) Closed fracture of distal end of right femur - Comgmt with Oncology & Orthopedics - Pt with apparent pathologic fracture - MRI RLE --> pending - IR, Dr. Graham, (04/20/18) - Angio completed - Lesion in the distal right femur is hypovascular. - No embolization preformed - Pt underwent Right femur reduction and intramedullary nail fixation (04/21/18) with Dr. Joel Amador - Case d/w Dr. Amador (04/21/18) - Appreciate input from Oncology, Dr. Caldwell - hgb 13.8 -> 10.3 (04/22), likely post-op will recheck in AM - Plt 94 recheck in AM - lovenox for DVT prophylaxis - norco/IV dilaudid prn pain - supportive care - anticipate d/c in 1-2 days once cleared by Orthopedic surgery (2) Metastatic renal cell carcinoma - chemotherapy on hold - await Oncology (3) Hypertension - metoprolol, enalapril - prn Catapres, vasotec (4) Chronic renal insufficiency, stage III (moderate) - improving - observe (2) Metastatic renal cell carcinoma Code(s): C64.9 - Malignant neoplasm of unspecified kidney, except renal pelvis Status: Acute (3) Hypertension Code(s): I10 - Essential (primary) hypertension Status: Acute (4) Chronic renal insufficiency, stage III (moderate) Code(s): N18.3 - Chronic kidney disease, stage 3 (moderate) Status: Acute - Plan Patient examined. Assessment and plan formulated with Jennifer Kumar PA-C. I agree with the above. Pt voices NO new complaints. Anticipate d/c to home with HHC vs SNF once pt cleared by Orthopedic service. (1) Closed fracture of distal end of right femur Qualifiers: Encounter type: initial encounter Fracture morphology: other fracture Qualified Code(s): S72.491A - Other fracture of lower end of right femur, initial encounter for closed fracture
[2018-04-22 12:31] LABS: Platelet Morphology Normal (Normal)
[2018-04-22 12:32] LABS: Tear Drop Cells 1+
[2018-04-22] MEDS: Sodium Chloride 0.45 % Inj 1,000 ML IV.CONT SCH (12:45)
--- NOTE | 2018-04-22 13:55 | P.PNONC ---
Subjective Interval history: Afebrile No bleeding Patient reports he walked around the room with physical therapy this morning Urinating okay and having regular bowel movements Objective Vital Signs/Intake & Output: Vital Signs 04/21/18 16:00 04/21/18 20:00 04/22/18 00:00 Temperature 98.6 F 97.9 F 97.7 F Pulse Rate 61 75 68 Respiratory Rate 18 19 17 Blood Pressure 165/89 H 161/79 H 130/80 Pulse Oximetry 98 95 98 04/22/18 03:41 04/22/18 08:00 04/22/18 12:00 Temperature 97.9 F 97.7 F 97.3 F L Pulse Rate 62 69 70 Respiratory Rate 16 18 18 Blood Pressure 142/85 H 143/83 H 142/75 H Pulse Oximetry 98 95 98 Intake & Output 04/21/18 04/22/18 04/22/18 18:59 06:59 18:59 Intake Total 1520 / 1520 340 / 340 1000 / 1000 Output Total 900 / 900 1200 / 1200 Balance 620 / 620 -860 / -860 1000 / 1000 Weight 191 lb 2.252 oz Intake: IV 100 / 100 100 / 100 1000 / 1000 1/2 Normal Saline Inj 1,000 ML 1000 / 1000 @ 50 mls/hr IV.CONT .Q20H [facility] Rx#:[id number] Ancef Inj 1,000 MG In NS Inj 100 / 100 100 / 100 100 ML @ 200 mls/hr IV.SIG Q8H [facility] Rx#:[id number] Oral 620 / 620 240 / 240 Anesthesia Amount 800 / 800 Output: Urine 850 / 850 1200 / 1200 Estimated Blood Loss 50 / 50 Other: # Voids 2 1 Date of Last Bowel Movement 04/20/18 04/22/18 # Bowel Movements 0 1 Result Diagrams: 04/22/18 10:56 04/22/18 10:56 Laboratory Results: Laboratory Results - last 24 hr 04/22/18 04/22/18 10:56 10:56 WBC 5.2 RBC 2.74 L Hgb 10.3 L Hct 30.1 L MCV 110.0 H MCH 37.5 H MCHC 34.1 RDW 15.0 Plt Count 94 L MPV 8.3 Prelim Diff (Auto) Slide review pending Neut % (Auto) 76.4 H Lymph % (Auto) 10.1 [place] % (Auto) 12.8 H Eos % (Auto) 0.4 Baso % (Auto) 0.3 Neut # (Auto) 4.0 Lymph # (Auto) 0.5 L [place] # (Auto) 0.7 Eos # (Auto) 0.0 Baso # (Auto) 0.0 WBC Differential . Diff Scan Auto diff confirmed Differential Comment . Platelet Estimate Low L Platelet Morphology Normal Tear Drop Cells 1+ H Sodium 134 L Potassium 4.2 Chloride 98 Carbon Dioxide 25.1 Anion Gap 11 BUN 26 H Creatinine 1.44 H Estimated GFR 50 L Random Glucose 133 H Calcium 8.2 L Imaging Studies: Impressions Femur X-Ray 04/21/18 00:00 CONCLUSION: Anatomic alignment. Medications: Active Medications Generic Name Dose Route Start Last Admin Trade Name Freq PRN Reason Stop Dose Admin Hydrocodone Bitart/Acetaminophen 1 tab 04/20/18 20:07 04/21/18 04:25 [place] 5/325 PO 1 tab Q6H PRN Administration BREAKTHROUGH PAIN Hydrocodone Bitart/Acetaminophen 1 tab 04/21/18 10:00 04/22/18 12:40 [place] 7.5/325 PO 1 tab Q3H PRN Administration Pain Scale 3-10 Allopurinol 300 mg 04/20/18 09:00 04/22/18 09:15 Zyloprim PO 300 mg DAILY [facility] Administration Calcium/Vitamin D 1 tab 04/21/18 13:00 04/22/18 12:40 Oscal With D 250/125 Mg PO 1 tab TID QUANG Administration Clonidine HCl 0.1 mg 04/19/18 21:32 04/20/18 00:18 Catapres PO 0.1 mg Q6H PRN Administration SBP> OR = 180, DBP> OR = 100 Enalapril Maleate 10 mg 04/20/18 09:00 04/22/18 09:15 Vasotec PO 10 mg DAILY [facility] Administration Enoxaparin Sodium 40 mg 04/22/18 09:00 04/22/18 09:26 Lovenox Inj SQ 40 mg DAILY [facility]ANG Administration Furosemide 40 mg 04/20/18 09:00 04/22/18 09:15 Lasix PO 40 mg DAILY [facility] Administration Hydromorphone HCl 1 mg 04/19/18 21:26 04/22/18 05:58 Dilaudid Pf Inj IV.PUSH 1 mg Q4H PRN Administration PAIN SCALE 6 TO 10 Sodium Chloride 1,000 mls @ 50 mls/hr 04/19/18 21:30 04/22/18 12:45 1/2 Normal Saline Inj IV.CONT Not Given .Q20H [facility] Sodium Chloride 500 mls @ 30 mls/hr 04/21/18 05:00 04/21/18 06:40 Ns Inj IV.SIG Not Given .Q10H [facility] Lorazepam 0.5 mg 04/20/18 09:00 04/22/18 09:26 Ativan PO Not Given BID QUANG Metoprolol Tartrate 50 mg 04/20/18 21:00 04/22/18 09:16 Lopressor PO 50 mg BID QUANG Administration Pantoprazole Sodium 20 mg 04/20/18 09:00 04/22/18 09:15 Protonix PO 20 mg DAILY [facility]ANG Administration Potassium Chloride 10 meq 04/20/18 09:00 04/22/18 09:16 Klor-Con 10 PO 10 meq DAILY [facility]ANG Administration Senna/Docusate Sodium 1 tab 04/20/18 09:00 04/22/18 09:16 Lisa-Colace PO 1 tab BID QUANG Administration Sodium Chloride 2 ml 04/21/18 21:00 04/22/18 09:27 Ns Flush IV.FLUSH 2 ml BID QUANG Administration Vitamin D 5,000 unit 04/22/18 09:00 04/22/18 09:15 Vitamin D3 PO 5,000 unit DAILY [facility]ANG Administration Objective Remarks: GENERAL: Overweight male patient sitting up in bed watching TV in no obvious distress SKIN: Warm and dry. HEAD: Normocephalic. EYES: No scleral icterus. No injection or drainage. NECK: Supple, trachea midline. CARDIOVASCULAR: Regular rate and rhythm without murmurs. RESPIRATORY: Anterior breath sounds equal bilaterally. No accessory muscle use. GASTROINTESTINAL: Abdomen protuberant but soft. Non-tender. EXTREMITIES: No cyanosis, or edema. Micheal wraps to right knee/thigh. MUSCULOSKELETAL: Adequate muscle tone. NEUROLOGICAL: No obvious focal deficit. Awake, alert, and oriented x3. Assessment/Plan - Plan Mr. Salguero is a 57-year-old gentleman who has a history of metastatic renal cell cancer, originally diagnosed in 2009 and develop metastatic disease in 2013. He is receiving Votrient for palliative therapy. Patient was admitted with a new pathologic fracture of the right distal femur. Plan: 1. Patient has had no further bleeding after right femur reduction with intramedullary nail fixation. Lovenox for DVT prophylaxis was started this morning. 2. Discussed with patient he should hold his Votrient until he has follow-up with Dr. Caldwell in clinic. - Attending Statement The exam, history, and the medical decision-making described in the above note were completed with the assistance of the mid-level provider. I reviewed and agree with the findings presented. I attest that I had a [id number] encounter with the patient on the same day, and personally performed and documented my assessment and findings in the medical record. Right knee swelling. Dressing dry. Patient able to move toes and ankles. DVT prophylaxis initiated. Monitor for bleeding. Continue to hold Votrient. Okay for discharge to rehab or SNF. Follow-up in oncology clinic as an outpatient.
[2018-04-22] MEDS ORDERED: Metoprolol Tartrate 50 MG Tablet PO ONE (23:15)
[2018-04-23] MEDS: Sodium Chloride 0.45 % Inj 1,000 ML IV.CONT SCH (04:55)
[2018-04-23] MEDS: HYDROmorphone PF Inj 2 MG/ML Vial IV.PUSH PRN (05:04)
[2018-04-23 06:05] LABS: Baso % (Auto) 0.5 % (0.0-2.0); Eos # (Auto) 0.2 th/mm3 (0.0-0.4); Eos % (Auto) 3.7 % (0.0-4.0); Hematocrit 30.9 % (39.0-51.0); Hemoglobin 10.7 gm/dL (13.0-17.0); Lymph # (Auto) 0.8 th/mm3 (1.0-4.8); Lymph % (Auto) 18.5 % (9.0-44.0); Mean Corpuscular HGB Conc 34.6 % (32.0-36.0); Mean Corpuscular Volume 109.9 fL (80.0-100.0); Mean Platelet Volume 8.1 fL (7.0-11.0); Mono # (Auto) 0.6 th/mm3 (0.0-0.9); Neut # (Auto) 2.7 th/mm3 (1.8-7.7); Neut % (Auto) 63.3 % (16.0-70.0); Platelet Count 91 th/mm3 (150-450); Red Blood Count 2.81 mil/mm3 (4.50-5.90); Red Cell Distribution Width 15.3 % (11.6-17.2); White Blood Count 4.2 th/mm3 (4.0-11.0)
--- NOTE | 2018-04-23 06:41 | P.PNOP ---
Subjective Interval history: POD 2 s/p IMN right distal femur fx doing well. states pain. has been out of bed with therapy Physical Exam Vital signs: Vital Signs 04/22/18 08:00 04/22/18 12:00 04/22/18 16:00 Temperature 97.7 F 97.3 F L 97.4 F L Pulse Rate 69 70 71 Respiratory Rate 18 18 18 Blood Pressure 143/83 H 142/75 H 155/74 H Pulse Oximetry 95 98 99 04/22/18 19:20 04/22/18 19:52 04/22/18 20:15 Temperature 97.7 F Pulse Rate 81 Respiratory Rate 18 18 18 Blood Pressure 157/92 H Pulse Oximetry 95 04/23/18 00:24 04/23/18 03:50 04/23/18 06:36 Temperature 97.5 F L 97.3 F L Pulse Rate 68 63 Respiratory Rate 18 18 18 Blood Pressure 160/88 H 172/99 H Pulse Oximetry 97 96 Intake & Output 04/22/18 04/22/18 04/23/18 06:59 18:59 06:59 Intake Total 340 / 340 2200 / 2200 360 / 360 Output Total 1200 / 1200 800 / 800 575 / 575 Balance -860 / -860 1400 / 1400 -215 / -215 Weight 86.7 kg 86.7 kg Intake: IV 100 / 100 1000 / 1000 1/2 Normal Saline Inj 1,000 ML 1000 / 1000 @ 50 mls/hr IV.CONT .Q20H QUANG Rx#:[id number] Ancef Inj 1,000 MG In NS Inj 100 / 100 100 ML @ 200 mls/hr IV.SIG Q8H QUANG Rx#:[id number] Oral 240 / 240 1200 / 1200 360 / 360 Output: Urine 1200 / 1200 800 / 800 575 / 575 Other: # Voids 1 2 Date of Last Bowel Movement 04/20/18 04/22/18 04/22/18 # Bowel Movements 1 2 0 Narrative: RLE: dressings clean and dry. intact. NVI,. neg [place] Results - Labs CBC & Chem 7: 04/23/18 04:47 04/22/18 10:56 Laboratory Results - last 24 hr 04/22/18 04/22/18 04/23/18 10:56 10:56 04:47 WBC 5.2 4.2 RBC 2.74 L 2.81 L Hgb 10.3 L 10.7 L Hct 30.1 L 30.9 L MCV 110.0 H 109.9 H MCH 37.5 H 38.0 H MCHC 34.1 34.6 RDW 15.0 15.3 Plt Count 94 L 91 L MPV 8.3 8.1 Prelim Diff (Auto) Slide review pending Slide review pending Neut % (Auto) 76.4 H 63.3 Lymph % (Auto) 10.1 18.5 [place] % (Auto) 12.8 H 14.0 H Eos % (Auto) 0.4 3.7 Baso % (Auto) 0.3 0.5 Neut # (Auto) 4.0 2.7 Lymph # (Auto) 0.5 L 0.8 L [place] # (Auto) 0.7 0.6 Eos # (Auto) 0.0 0.2 Baso # (Auto) 0.0 0.0 WBC Differential . Diff Scan Auto diff confirmed Differential Comment . . Platelet Estimate Low L Platelet Morphology Normal Tear Drop Cells 1+ H Sodium 134 L Potassium 4.2 Chloride 98 Carbon Dioxide 25.1 Anion Gap 11 BUN 26 H Creatinine 1.44 H Estimated GFR 50 L Random Glucose 133 H Calcium 8.2 L Assessment and Plan - Assessment and Plan 1) Pathologic fracture of right distal femur status post intramedullary nail fixation POD 2 Physical therapy toe-touch weightbearing right lower extremity and passive range of motion of knee Daily dressing changes beginning POD 2 Lovenox Oncology to continue to follow for renal cell carcinoma Reamings from femur were sent to pathology Prescription from Dr. Amador is on the chart. Previously pain management has been controlled with his primary care physician and also his oncologist. CM for rehab placement f/u with [facility] in 2 weeks [facility] Prescription Drug Monitoring Database has been queried and verified prior to prescribing the controlled substance. Acute pain exception. This patient has normal, predicted, physiological, and time limited response to an adverse mechanical stimulus associated with surgery, trauma, or acute illness as described in my notes. There is a lack of alternative treatment options other than to include the prescribed narcotic treatment for this condition.
[2018-04-23] MEDS: LORazepam 0.5 MG Tablet PO SCH ×2 (08:39→20:41)
[2018-04-23] MEDS: Enoxaparin Inj 40 MG/0.4 ML Syringe SQ SCH (08:41)
[2018-04-23] MEDS: Metoprolol Tartrate 100 MG Tablet PO SCH ×2 (08:41→20:34)
[2018-04-23] MEDS: Senna/Docusate Sodium 8.6/50 MG Tablet PO SCH ×2 (08:41→20:34)
[2018-04-23] MEDS: Calcium/Vitamin D 250/125 MG Tablet PO SCH ×3 (08:41→17:00)
[2018-04-23] MEDS: Furosemide 40 MG Tablet PO SCH (08:42)
[2018-04-23] MEDS: Pantoprazole Sodium 20 MG DR Tablet PO SCH (08:42)
[2018-04-23] MEDS: Allopurinol 300 MG Tablet PO SCH (08:42)
--- NOTE | 2018-04-23 09:44 | P.PNIM ---
Subjective Interval history: pt in no distress. awaiting his PT session. Physical Exam Vital signs: Vital Signs 04/22/18 12:00 04/22/18 16:00 04/22/18 19:20 Temperature 97.3 F L 97.4 F L 97.7 F Pulse Rate 70 71 81 Respiratory Rate 18 18 18 Blood Pressure 142/75 H 155/74 H 157/92 H Pulse Oximetry 98 99 95 04/22/18 19:52 04/22/18 20:15 04/23/18 00:24 Temperature 97.5 F L Pulse Rate 68 Respiratory Rate 18 18 18 Blood Pressure 160/88 H Pulse Oximetry 97 04/23/18 03:50 04/23/18 06:36 04/23/18 08:00 Temperature 97.3 F L 98.0 F Pulse Rate 63 99 H Respiratory Rate 18 18 18 Blood Pressure 172/99 H 147/83 H Pulse Oximetry 96 99 Intake & Output 04/22/18 04/23/18 04/23/18 18:59 06:59 18:59 Intake Total 2200 / 2200 360 / 360 240 / 240 Output Total 800 / 800 575 / 575 Balance 1400 / 1400 -215 / -215 240 / 240 Weight 86.7 kg Intake: IV 1000 / 1000 1/2 Normal Saline Inj 1,000 ML 1000 / 1000 @ 50 mls/hr IV.CONT .Q20H QUANG Rx#:[id number] Oral 1200 / 1200 360 / 360 240 / 240 Output: Urine 800 / 800 575 / 575 Other: # Voids 2 Date of Last Bowel Movement 04/22/18 04/22/18 # Bowel Movements 2 0 nad heart reg lung cta abd s/nt Results - Labs CBC & Chem 7: 04/23/18 04:47 04/22/18 10:56 Laboratory Results - last 24 hr 04/22/18 04/22/18 04/23/18 10:56 10:56 04:47 WBC 5.2 4.2 RBC 2.74 L 2.81 L Hgb 10.3 L 10.7 L Hct 30.1 L 30.9 L MCV 110.0 H 109.9 H MCH 37.5 H 38.0 H MCHC 34.1 34.6 RDW 15.0 15.3 Plt Count 94 L 91 L MPV 8.3 8.1 Prelim Diff (Auto) Slide review pending Slide review pending Neut % (Auto) 76.4 H 63.3 Lymph % (Auto) 10.1 18.5 [place] % (Auto) 12.8 H 14.0 H Eos % (Auto) 0.4 3.7 Baso % (Auto) 0.3 0.5 Neut # (Auto) 4.0 2.7 Lymph # (Auto) 0.5 L 0.8 L [place] # (Auto) 0.7 0.6 Eos # (Auto) 0.0 0.2 Baso # (Auto) 0.0 0.0 WBC Differential . . Diff Scan Auto diff confirmed Auto diff confirmed Differential Comment . . Platelet Estimate Low L Platelet Morphology Normal Tear Drop Cells 1+ H Sodium 134 L Potassium 4.2 Chloride 98 Carbon Dioxide 25.1 Anion Gap 11 BUN 26 H Creatinine 1.44 H Estimated GFR 50 L Random Glucose 133 H Calcium 8.2 L Assessment and Plan - Assessment (1) Closed fracture of distal end of right femur Code(s): S72.401A - Unspecified fracture of lower end of right femur, initial encounter for closed fracture Status: Acute Plan: (1) Closed fracture of distal end of right femur - Comgmt with Oncology & Orthopedics - Pt with apparent pathologic fracture - MRI RLE --> pending - IR, Dr. Graham, (04/20/18) - Angio completed - Lesion in the distal right femur is hypovascular. - No embolization preformed - Pt underwent Right femur reduction and intramedullary nail fixation (04/21/18) with Dr. Joel Amador - - Appreciate input from Oncology, Dr. Caldwell - hgb 13.8 -> 10.3 (04/22), - lovenox for DVT prophylaxis - norco/IV dilaudid prn pain - supportive care I reviewed pt's surgical films with him. He is awaiting PT eval today. He is contemplating hhc/pt vs snf Dc when ok with Ortho...discussed with CM and RN (2) Metastatic renal cell carcinoma - chemotherapy on hold - (3) Hypertension - metoprolol, enalapril - prn Catapres, vasotec (4) Chronic renal insufficiency, stage III (moderate) - improving - observe (2) Metastatic renal cell carcinoma Code(s): C64.9 - Malignant neoplasm of unspecified kidney, except renal pelvis Status: Acute (3) Hypertension Code(s): I10 - Essential (primary) hypertension Status: Acute (4) Chronic renal insufficiency, stage III (moderate) Code(s): N18.3 - Chronic kidney disease, stage 3 (moderate) Status: Acute (1) Closed fracture of distal end of right femur Qualifiers: Encounter type: initial encounter Fracture morphology: other fracture Qualified Code(s): S72.491A - Other fracture of lower end of right femur, initial encounter for closed fracture
--- NOTE | 2018-04-23 14:00 | P.DCO ---
- Physical Therapy Order: Evaluate and treat - Home Health Nursing Order: Medical education, Signs/symptoms of disease process, Medication education-adverse effect, Nursing assessment with vital signs - Certification I have seen patient Gregory Salguero on 04/23/18. My clinical findings support the need for the requested home health care services because: Limited mobility due to disease progression, Deconditioned with increased weakness I certify that my clinical findings support that this patient is homebound because: Unsteady gait/balance
--- NOTE | 2018-04-23 14:10 | P.DS ---
Date of admission: 04/19/18 19:41 Primary care physician: Frankie Flanagan MD, PhD Attending physician on discharge: Leon Johnston Anticipated date of discharge: 04/24/18 Brief History from admission: 57-year-old white male presents to the emergency department at [facility] for evaluation of possible right knee dislocation. Patient states he was home was at home and his knee gave out and he fell to the ground. Patient has recently started having pain to the right leg and right knee and has been under workup x-rays were done which showed a question of possible metastasized to the knee and he was scheduled for an MRI which was to be done tomorrow. He denies any other injury no loss of consciousness no neck or back pain no chest pain no abdominal pain no vomiting no shortness of breath. Patient has a history of right of renal cell carcinoma with metastasis to the pancreas adrenal glands long liver has had renal nephrectomy is followed by oncology currently is on Pazopanib and core into the patient has has done well with this medication with improvement in his chest x-ray until recently and they found a possible spot on the knee. Patient also has a history of hypertension and is on metoprolol 100 twice daily enalapril 10 mg a day Lasix 40 mg a day and potassium supplementation patient's blood pressure has been a little high in the emergency room we will Klonopin as necessary as his kidney function shows a creatinine 1.73. Case was discussed with orthopedics by the emergency room and he will have conscious sedation in long [place]vas splint placed on the leg plans for operation in a.m. DS: Diagnosis - Discharge Diagnosis (1) Closed fracture of distal end of right femur Status: Acute (2) Metastatic renal cell carcinoma Status: Acute (3) Hypertension Status: Acute (4) Chronic renal insufficiency, stage III (moderate) Status: Acute DS: Medications - Discharge Medications Prescriptions: hydrocodone-acetaminophen [[place]] 1 tab PO Q4H #40 tab rivaroxaban [Xarelto] 10 mg PO DAILY #14 tab DS: Summary Hospital Course: Closed fracture of distal end of right femur - Comgmt with Oncology & Orthopedics - Pt with apparent pathologic fracture - MRI RLE --> pending - Dr. Santos AGGARWAL, (04/20/18) - Angio completed - Lesion in the distal right femur is hypovascular. - No embolization preformed - Pt underwent Right femur reduction and intramedullary nail fixation (04/21/18) with Dr. Joel Amador - Appreciate input from Oncology, Dr. Caldwell - hgb 13.8 -> 10.3 (04/22) -> 10.7 (04/23) - lovenox for DVT prophylaxis - norco/IV dilaudid prn pain - supportive care Dr. Johnston reviewed pt's surgical films with patient 04/22 Patient wishes to go home with [facility]/ home PT Metastatic renal cell carcinoma - chemotherapy on hold Hypertension - metoprolol, enalapril - prn Catapres, vasotec Chronic renal insufficiency, stage III (moderate) - improving - observe - Time Spent with Patient Total time spent providing and/or coordinating discharge services: Greater than 30 minutes - Quality: VTE Deep Vein Thrombosis/Pulmonary Embolism Present on Admission: No Exam Vital signs: Vital Signs 04/22/18 16:00 04/22/18 19:20 04/22/18 19:52 Temperature 97.4 F L 97.7 F Pulse Rate 71 81 Respiratory Rate 18 18 18 Blood Pressure 155/74 H 157/92 H Pulse Oximetry 99 95 04/22/18 20:15 04/23/18 00:24 04/23/18 03:50 Temperature 97.5 F L 97.3 F L Pulse Rate 68 63 Respiratory Rate 18 18 18 Blood Pressure 160/88 H 172/99 H Pulse Oximetry 97 96 04/23/18 06:36 04/23/18 08:00 04/23/18 12:00 Temperature 98.0 F 97.2 F L Pulse Rate 99 H 64 Respiratory Rate 18 18 18 Blood Pressure 147/83 H 162/72 H Pulse Oximetry 99 99 Intake & Output 04/22/18 04/23/18 04/23/18 18:59 06:59 18:59 Intake Total 2200 / 2200 360 / 360 240 / 240 Output Total 800 / 800 575 / 575 Balance 1400 / 1400 -215 / -215 240 / 240 Weight 86.7 kg Intake: IV 1000 / 1000 1/2 Normal Saline Inj 1,000 ML 1000 / 1000 @ 50 mls/hr IV.CONT .Q20H QUANG Rx#:[id number] Oral 1200 / 1200 360 / 360 240 / 240 Output: Urine 800 / 800 575 / 575 Other: # Voids 2 Date of Last Bowel Movement 04/22/18 04/22/18 # Bowel Movements 2 0 Narrative: nad heart reg lung cta abd s/nt Results Procedures completed during hospitalization: Right femur reduction and intramedullary nail fixation (04/21/18) with Dr. Joel Amador Completed studies during hospitalization: Pending at discharge 04/21/18 13:01 Surgical [PTH] Routine Labs on day of discharge: Labs from last 24 hours 04/23/18 04:47 WBC 4.2 RBC 2.81 L Hgb 10.7 L Hct 30.9 L MCV 109.9 H MCH 38.0 H MCHC 34.6 RDW 15.3 Plt Count 91 L MPV 8.1 Prelim Diff (Auto) Slide review pending Neut % (Auto) 63.3 Lymph % (Auto) 18.5 [place] % (Auto) 14.0 H Eos % (Auto) 3.7 Baso % (Auto) 0.5 Neut # (Auto) 2.7 Lymph # (Auto) 0.8 L [place] # (Auto) 0.6 Eos # (Auto) 0.2 Baso # (Auto) 0.0 WBC Differential . Diff Scan Auto diff confirmed Differential Comment . - Impressions ITS Impressions Knee X-Ray 04/19/18 17:58 CONCLUSION: Distal femur fracture. Chest X-Ray 04/19/18 18:33 CONCLUSION: No acute cardiopulmonary disease. Lower Extremity Angiography 04/20/18 00:00 CONCLUSION: 1. The patient's pathologic fracture through the distal femurs easily visualized. There is no significant arterial neovascularity in or around the fracture site. Femur X-Ray 04/21/18 00:00 CONCLUSION: Anatomic alignment. Discharge Plan - Discharge Disposition Patient Disposition: W/Home Health Service - Discharge Condition Condition: Fair - Discharge Order Discharge Orders: Discharge Order (Routine); Ordered 04/24/18 Ordered By: Jennifer Kumar - Discharge Details Anticipated Discharge Date: 04/24/18 - Physicians Team Primary Care Provider: Frankie Flanagan Attending Provider: Antonino Antonio Other Providers: Emeka Montoya MD ; Joel Amador MD ; Sandra Caldwell MD ; [facility]
--- NOTE | 2018-04-24 06:41 | P.PNOP ---
Subjective Interval history: Doing well. Pain is controlled. He is progressing well with physical therapy. He is anticipating discharge home today Physical Exam Vital signs: Vital Signs 04/23/18 08:00 04/23/18 12:00 04/23/18 16:00 Temperature 98.0 F 97.2 F L 97.6 F Pulse Rate 99 H 64 58 L Respiratory Rate 18 18 18 Blood Pressure 147/83 H 162/72 H 150/83 H Pulse Oximetry 99 99 98 04/23/18 20:00 04/24/18 00:00 04/24/18 04:00 Temperature 98.4 F 97.7 F 97.3 F L Pulse Rate 70 66 70 Respiratory Rate 22 20 22 Blood Pressure 157/71 H 171/86 H 165/81 H Pulse Oximetry 97 98 97 Intake & Output 04/23/18 04/23/18 04/24/18 06:59 18:59 06:59 Intake Total 360 / 360 1200 / 1200 720 / 720 Output Total 575 / 575 1600 / 1600 300 / 300 Balance -215 / -215 -400 / -400 420 / 420 Weight 86.7 kg Intake: Oral 360 / 360 1200 / 1200 720 / 720 Output: Urine 575 / 575 1600 / 1600 300 / 300 Other: # Voids 2 Date of Last Bowel Movement 04/22/18 04/23/18 04/23/18 # Bowel Movements 0 Narrative: Right lower extremity: Clean dry dressings intact. Minimal swelling. Distally intact sensation with active dorsiflexion plantar flexion of foot. No calf tenderness or Homans sign Results - Labs CBC & Chem 7: 04/23/18 04:47 04/22/18 10:56 Laboratory Results - last 24 hr 04/23/18 04:47 WBC Differential . Diff Scan Auto diff confirmed - Procedures Right femur reduction and intramedullary nail fixation (04/21/18) with Dr. Joel Amador Assessment and Plan - Assessment and Plan 1) Pathologic fracture of right distal femur status post intramedullary nail fixation POD 3 Physical therapy toe-touch weightbearing right lower extremity and passive range of motion of knee Daily dressing changes Lovenox Oncology to continue to follow for renal cell carcinoma Reamings from femur were sent to pathology Prescription from Dr. Amador is on the chart. Previously pain management has been controlled with his primary care physician and also his oncologist. CM for rehab placement f/u with [facility] in 2 weeks [facility] Prescription Drug Monitoring Database has been queried and verified prior to prescribing the controlled substance. Acute pain exception. This patient has normal, predicted, physiological, and time limited response to an adverse mechanical stimulus associated with surgery, trauma, or acute illness as described in my notes. There is a lack of alternative treatment options other than to include the prescribed narcotic treatment for this condition.
[2018-04-24] MEDS: Sodium Chloride 0.45 % Inj 1,000 ML IV.CONT SCH (07:38)
[2018-04-24] MEDS: Senna/Docusate Sodium 8.6/50 MG Tablet PO SCH (09:05)
[2018-04-24] MEDS: Furosemide 40 MG Tablet PO SCH (09:05)
[2018-04-24] MEDS: Calcium/Vitamin D 250/125 MG Tablet PO SCH (09:06)
[2018-04-24] MEDS: Pantoprazole Sodium 20 MG DR Tablet PO SCH (09:06)
[2018-04-24] MEDS: Metoprolol Tartrate 100 MG Tablet PO SCH (09:07)
[2018-04-24] MEDS: Enoxaparin Inj 40 MG/0.4 ML Syringe SQ SCH (09:07)
[2018-04-24] MEDS: Allopurinol 300 MG Tablet PO SCH (09:07)
[2018-04-24] MEDS: LORazepam 0.5 MG Tablet PO SCH (09:08)
== END 2018-04-24 12:29 ==
LOC: NEPE 17:33 → NEDA 19:41 → N06 22:45
PROVIDERS: ADMIT Hospitalist; ATTEND Hospitalist